=== PATIENT | female | born 1960 | race American Indian/Alaskan Native ===

== ENCOUNTER 2017-08-28 18:58 | Emergency (ER) | payer MEDICAID ==
[2017-08-28 19:20] VITALS: BP 131/82
[2017-08-28] MEDS ORDERED: Sodium Chloride 0.9% 10 ML Syringe FLUSH PRN (19:36)
[2017-08-28] MEDS ORDERED: Sodium Chloride 0.9% 1,000 ML IV ONE (19:38)
--- NOTE | 2017-08-28 19:46 | EDM.PDOC ---
ED HPI GENERAL MEDICAL PROBLEM - General Chief Complaint: Gastrointestinal Problem Stated Complaint: constipation Time Seen by Provider: 08/28/17 19:36 Source of Information: Reports: Patient History Limitations: Reports: No Limitations - History of Present Illness INITIAL COMMENTS - FREE TEXT/NARRATIVE: Patient presents with complaints of constipation. Was seen at the clinic yesterday for similar issue and was told to walk more. She states her last good bowel movement was 4 days ago. She took miralax last night and this morning with a very small bowel movement today. Complains of left upper quadrant pain and bloating. Medical history is significant for hepatitis c and cirrhosis of the liver, copd, ulcer, and diabetes that is diet controlled with metformin. She denies headache, chest pain, SOB, nausea or vomiting. She takes metformin and checks her blood glucose several times per day. Still smokes 1 PPD. Denies drugs or alcohol. Onset Date: 08/27/17 Duration: Constant Location: Reports: Abdomen Quality: Reports: Ache Severity: Moderate Worsens with: Reports: Movement Associated Symptoms: Reports: No Other Symptoms Middle Abdomen Pain Score (Numeric/FACES): 8 - Related Data Allergies Allergy/AdvReac Type Severity Reaction Status Date / Time codeine Allergy Nausea and Verified 08/28/17 19:16 Vomiting meperidine HCl [From Demerol] Allergy Tachycardia Verified 08/28/17 19:16 tramadol Allergy Nausea and Verified 08/28/17 19:16 Vomiting Home Meds: Home Meds Budesonide/Formoterol [Symbicort 80-4.5 MCG] 2 puff INH BID 04/24/14 [History] Tiotropium [Spiriva HandiHaler] 1 cap INH DAILY 04/24/14 [History] Citalopram Hydrobromide [Celexa] 40 mg PO BEDTIME 07/20/14 [History] Ibuprofen 3 tab PO DAILY PRN 08/02/14 [History] QUEtiapine [SEROquel XR] 200 mg PO BEDTIME 12/17/15 [History] Spironolactone [Aldactone] 50 mg PO DAILY 12/17/15 [History] Sucralfate [Carafate] 1 gm PO QID 12/17/15 [History] Furosemide [Lasix] 40 mg PO DAILY 12/27/15 [History] Past Medical History HEENT History: Reports: None Cardiovascular History: Reports: High Cholesterol Respiratory History: Reports: COPD Other Respiratory History: PULMONARY NODULE, LEFT Gastrointestinal History: Reports: Cirrhosis, GERD, Hepatitis, Other (See Below) Other Gastrointestinal History: HEP C Musculoskeletal History: Reports: None Neurological History: Reports: None Psychiatric History: Reports: Anxiety, Depression, PTSD, Suicide Attempt Other Psychiatric History: DRUG OVERDOSE. IV DRUG USE Endocrine/Metabolic History: Reports: None Hematologic History: Reports: Other (See Below) Other Hematologic History: THROMOCYTOPENIA Immunologic History: Reports: None Oncologic (Cancer) History: Reports: None Dermatologic History: Reports: None - Infectious Disease History Infectious Disease History: Reports: Hepatitis C - Past Surgical History Head Surgeries/Procedures: Reports: None Female Surgical History: Reports: Hysterectomy, Tubal Ligation Social & Family History - Tobacco Use Smoking Status *Q: Current Every Day Smoker Years of Tobacco use: 46 Packs/Tins Daily: 0.1 Used Tobacco, but Quit: No Second Hand Smoke Exposure: No - Alcohol Use Days Per Week of Alcohol Use: 0 Number of Drinks Per Day: 0 Total Drinks Per Week: 0 - Recreational Drug Use Recreational Drug Use: No Drug Use in Last 12 Months: No Recreational Drug Type: Reports: Marijuana/Hashish Recreational Drug Use Frequency: Rarely Recreational Drug Last Use: Many years ago ED ROS GENERAL - Review of Systems Review Of Systems: See Below Constitutional: Reports: No Symptoms HEENT: Reports: No Symptoms Respiratory: Reports: No Symptoms Cardiovascular: Reports: No Symptoms Endocrine: Reports: No Symptoms GI/Abdominal: Reports: Abdominal Pain, Constipation : Reports: No Symptoms Musculoskeletal: Reports: No Symptoms Skin: Reports: No Symptoms Neurological: Reports: No Symptoms Psychiatric: Reports: No Symptoms ED EXAM, GI/ABD - Physical Exam Exam: See Below Exam Limited By: No Limitations General Appearance: Alert, WD/WN, No Apparent Distress Eyes: Bilateral: EOMI Head: Atraumatic, Normocephalic Neck: Normal Inspection, Supple, Non-Tender, Full Range of Motion Respiratory/Chest: No Respiratory Distress, Lungs Clear, Normal Breath Sounds, No Accessory Muscle Use, Chest Non-Tender Cardiovascular: Normal Peripheral Pulses, Regular Rate, Rhythm, No Edema, No Gallop, No JVD, No Murmur, No Rub GI/Abdominal Exam: Normal Bowel Sounds, Distended, Splenomegaly Back Exam: Normal Inspection, Full Range of Motion, NT Extremities: Normal Inspection, Normal Range of Motion, Non-Tender, Normal Capillary Refill, No Pedal Edema Neurological: Alert, Oriented, CN II-XII Intact, Normal Cognition, Normal Gait, Normal Reflexes, No Motor/Sensory Deficits Psychiatric: Normal Affect, Normal Mood Skin Exam: Warm, Dry, Intact, Normal Color, No Rash Lymphatic: No Adenopathy Course - Vital Signs Last Recorded V/S: Last Vital Signs Temp 35.8 C 08/28/17 19:17 Pulse 112 H 08/28/17 19:17 Resp 20 08/28/17 19:17 BP 131/82 08/28/17 19:17 Pulse Ox 96 08/28/17 19:17 - Orders/Labs/Meds Orders: Active Orders 24 hr Category Date Time Status Abdomen Pelvis w Cont [CT] Stat Exams 08/28/17 19:36 Taken Sodium Chloride 0.9% [Saline Flush] Med 08/28/17 19:36 Active 10 ml FLUSH ASDIRECTED PRN Saline Lock Insert [OM.PC] Routine Oth 08/28/17 19:36 Ordered Medication Orders Sodium Chloride (Saline Flush) 10 ml FLUSH ASDIRECTED PRN PRN Reason: Keep Vein Open Labs: Laboratory Tests 08/28/17 Range/Units 19:50 Sodium 140 (136-145) mmol/L Potassium 3.0 L (3.5-5.1) mmol/L Chloride 103 (98-107) mmol/L Carbon Dioxide 29 (21-32) mmol/L BUN 9 (7-18) mg/dL Creatinine 0.8 (0.55-1.02) mg/dL Est Cr Clr Drug Dosing TNP Estimated GFR (MDRD) > 60 Glucose 223 H (74-106) mg/dL Calcium 8.2 L (8.5-10.1) mg/dL Corrected Calcium 9.32 (8.5-10.1) mg/dL Total Bilirubin 1.2 H (0.2-1.0) mg/dL AST 70 H (15-37) U/L ALT 83 H (14-59) U/L Alkaline Phosphatase 167 H (46-116) U/L Total Protein 7.0 (6.4-8.2) g/dL Albumin 2.6 L (3.4-5.0) g/dL Globulin 4.4 Albumin/Globulin Ratio 0.59 Meds: Medications Generic Name Dose Route Start Last Admin Trade Name Kathleen PRN Reason Stop Dose Admin Sodium Chloride 10 ml 08/28/17 19:36 Saline Flush FLUSH ASDIRECTED PRN Keep Vein Open Discontinued Medications Generic Name Dose Route Start Last Admin Trade Name Freq PRN Reason Stop Dose Admin Sodium Chloride 1,000 mls @ 999 mls/hr 08/28/17 19:38 08/28/17 19:55 Normal Saline IV 08/28/17 20:38 999 mls/hr ONETIME ONE Administration Magnesium Citrate 296 ml 08/28/17 22:10 Citrate Of Magnesia PO 08/28/17 22:11 ONETIME ONE Potassium Chloride 60 meq 08/28/17 21:44 08/28/17 21:51 Klor-Con 10 PO 08/28/17 21:45 60 meq ONETIME ONE Administration - Re-Assessments/Exams Free Text/Narrative Re-Assessment/Exam: 08/28/17 22:14 labs show hypokalemia at 3.0, CT shows ascites and moderate stool burden. Departure - Departure Time of Disposition: 22:30 Disposition: Home, Self-Care 01 Condition: Fair Clinical Impression: Constipation, Ascites - Discharge Information Instructions: Constipation, Adult, [id number], Ascites Forms: ED Department Discharge Additional Instructions: Your scan today shows that you do have constipation as well as ascites which is a fluid build up in the abdominal cavity due to cirrhosis of the liver. Ascites is a recurrent condition and at some point you may need to have the fluid drained. It is not to this point yet. When you finish the medication for constipation, you may not have relief tonight or even in the morning. Continue the miralax until you have more regular movements. Drink plenty of water to stay hydrated. At least 64 oz. per day. Follow up with your primary doctor as needed for symptom management. Call the ER with any questions or concerns. - Problem List & Annotations (1) Ascites SNOMED Code(s): 443353143 Code(s): R18.8 - OTHER ASCITES Status: Acute Priority: Medium Current Visit: Yes Qualifiers: Ascites type: other type Qualified Code(s): R18.8 - Other ascites (2) Constipation SNOMED Code(s): 40066687 Code(s): K59.00 - CONSTIPATION, UNSPECIFIED Status: Acute Priority: Low Current Visit: Yes - Problem List Review Problem List Initiated/Reviewed/Updated: Yes - My Orders Last 24 Hours: My Active Orders 08/28/17 19:36 Abdomen Pelvis w Cont [CT] Stat Sodium Chloride 0.9% [Saline Flush] 10 ml FLUSH ASDIRECTED PRN Saline Lock Insert [OM.PC] Routine - Assessment/Plan Last 24 Hours: My Active Orders 08/28/17 19:36 Abdomen Pelvis w Cont [CT] Stat Sodium Chloride 0.9% [Saline Flush] 10 ml FLUSH ASDIRECTED PRN Saline Lock Insert [OM.PC] Routine Assessment:: Ascites Constipation Plan: Your scan today shows that you do have constipation as well as ascites which is a fluid build up in the abdominal cavity due to cirrhosis of the liver. Ascites is a recurrent condition and at some point you may need to have the fluid drained. It is not to this point yet. When you finish the medication for constipation, you may not have relief tonight or even in the morning. Continue the miralax until you have more regular movements. Drink plenty of water to stay hydrated. At least 64 oz. per day. Follow up with your primary doctor as needed for symptom management. Call the ER with any questions or concerns.
[2017-08-28 20:20] LABS: CHLORIDE,CL 103 mmol/L (98-107); SODIUM,NA 140 mmol/L (136-145)
[2017-08-28] MEDS ORDERED: Potassium Chloride 10 MEQ Tab.ER PO ONE (21:44)
[2017-08-28] MEDS ORDERED: Magnesium Citrate Solution 296 ML Bottle PO ONE (22:10)
== END 2017-08-28 22:30 | disposition home or self-care (01) ==
LOC: VM.ED 18:58
DX: K59.00 Constipation, unspecified (principal); R18.8 Other ascites; E78.00 Pure hypercholesterolemia, unspecified; F17.210 Nicotine dependence, cigarettes, uncomplicated; Z88.5 Allergy status to narcotic agent; Z88.8 Allergy status to other drugs, medicaments and biological substances; Z79.899 Other long term (current) drug therapy
CPT/HCPCS: 74177; 80053; 96360; 99284; A9270; J7030

== ENCOUNTER 2017-09-03 12:42 | Inpatient (IN) | payer MEDICAID ==
[2017-09-03] MEDS ORDERED: Albuterol/Ipratropium 3.0-0.5 MG/3 ML Neb Soln NEB ONE (12:48)
[2017-09-03] MEDS ORDERED: Azithromycin 500 MG in Sodium Chloride 0.9% 250 ML IV ONE (13:31)
[2017-09-03] MEDS ORDERED: cefTRIAXone 1 GM Vial IVPUSH ONE (13:31)
[2017-09-03 13:44] LABS: CHLORIDE,CL 97 mmol/L (98-107); SODIUM,NA 134 mmol/L (136-145)
--- NOTE | 2017-09-03 14:23 | EDM.PDOC ---
ED HPI GENERAL MEDICAL PROBLEM - General Chief Complaint: Respiratory Problem Time Seen by Provider: 09/03/17 12:50 Source of Information: Reports: Patient, Family History Limitations: Reports: Altered Mental Status - History of Present Illness INITIAL COMMENTS - FREE TEXT/NARRATIVE: Pt. states that she has been experiencing increased shortness of breath for over the past several weeks. Pt. states that she was in ER and into the clinic twice in the past 4 days. Pt. states that she has had some chills but has not been checking her temp. Ambulance was summoned to ER today, but she refused admission and transport. Pt. has a history of cirrhosis of the liver but has been unable to get to see gastro in [place]. She also has severe COPD and chronic resp. failure. Onset: Gradual Location: Reports: Generalized Improves with: Reports: Rest Worsens with: Reports: Movement Associated Symptoms: Reports: Cough, cough w sputum, Diaphoresis, Fever/Chills, Weakness. Denies: Nausea/Vomiting, Rash - Related Data Allergies Allergy/AdvReac Type Severity Reaction Status Date / Time codeine Allergy Nausea and Verified 09/03/17 14:09 Vomiting meperidine HCl [From Demerol] Allergy Tachycardia Verified 09/03/17 14:09 tramadol Allergy Nausea and Verified 09/03/17 14:09 Vomiting Home Meds: Home Meds Budesonide/Formoterol [Symbicort 80-4.5 MCG] 2 puff INH BID 04/24/14 [History] Tiotropium [Spiriva HandiHaler] 1 cap INH DAILY 04/24/14 [History] Citalopram Hydrobromide [Celexa] 40 mg PO BEDTIME 07/20/14 [History] Ibuprofen 3 tab PO DAILY PRN 08/02/14 [History] QUEtiapine [SEROquel XR] 200 mg PO BEDTIME 12/17/15 [History] Spironolactone [Aldactone] 50 mg PO DAILY 12/17/15 [History] Sucralfate [Carafate] 1 gm PO QID 12/17/15 [History] Furosemide [Lasix] 40 mg PO DAILY 12/27/15 [History] Past Medical History HEENT History: Reports: None Cardiovascular History: Reports: High Cholesterol Respiratory History: Reports: COPD Other Respiratory History: PULMONARY NODULE, LEFT Gastrointestinal History: Reports: Cirrhosis, GERD, Hepatitis, Other (See Below) Other Gastrointestinal History: HEP C Musculoskeletal History: Reports: None Neurological History: Reports: None Psychiatric History: Reports: Anxiety, Depression, PTSD, Suicide Attempt Other Psychiatric History: DRUG OVERDOSE. IV DRUG USE Endocrine/Metabolic History: Reports: None Hematologic History: Reports: Other (See Below) Other Hematologic History: THROMOCYTOPENIA Immunologic History: Reports: None Oncologic (Cancer) History: Reports: None Dermatologic History: Reports: None - Infectious Disease History Infectious Disease History: Reports: Hepatitis C - Past Surgical History Head Surgeries/Procedures: Reports: None Female Surgical History: Reports: Hysterectomy, Tubal Ligation Social & Family History - Tobacco Use Smoking Status *Q: Current Every Day Smoker Years of Tobacco use: 40 Packs/Tins Daily: 0.3 Used Tobacco, but Quit: No Second Hand Smoke Exposure: No - Alcohol Use Days Per Week of Alcohol Use: 0 Number of Drinks Per Day: 0 Total Drinks Per Week: 0 - Recreational Drug Use Recreational Drug Use: No Drug Use in Last 12 Months: No Recreational Drug Type: Reports: Marijuana/Hashish Recreational Drug Use Frequency: Rarely Recreational Drug Last Use: Many years ago ED ROS GENERAL - Review of Systems Review Of Systems: See Below Constitutional: Reports: Fever, Chills, Weakness, Fatigue HEENT: Reports: No Symptoms Respiratory: Reports: Shortness of Breath, Wheezing, Cough, Sputum Cardiovascular: Reports: Dyspnea on Exertion Endocrine: Reports: No Symptoms GI/Abdominal: Reports: Anorexia, Other (increased pedal edema) : Reports: No Symptoms Musculoskeletal: Reports: No Symptoms Skin: Reports: Jaundice, Dryness Neurological: Reports: No Symptoms Psychiatric: Reports: No Symptoms Hematologic/Lymphatic: Reports: No Symptoms Immunologic: Reports: No Symptoms ED EXAM, GENERAL - Physical Exam Exam: See Below Exam Limited By: No Limitations General Appearance: Alert, Lethargic Eye Exam: Bilateral Eye: Normal Fundi, Normal Inspection, PERRL, Other (scleral icterus) Respiratory/Chest: Decreased Breath Sounds, Wheezing, Accessory Muscle Use Cardiovascular: Normal Peripheral Pulses, Regular Rate, Rhythm, No Gallop, No JVD, Tachycardia, Other (+ pedal edema) Peripheral Pulses: 2+: Radial (L), Radial (R) GI/Abdominal: Normal Bowel Sounds, Soft, Non-Tender, Distended, Splenomegaly (Female) Exam: Deferred Rectal (Female) Exam: Deferred Back Exam: Normal Inspection, Full Range of Motion, NT Extremities: Normal Range of Motion, Non-Tender, Pedal Edema Neurological: Alert, Oriented Psychiatric: Normal Affect, Normal Mood ( ) Skin Exam: Warm, Jaundice, Pallor Lymphatic: No Adenopathy EKG INTERPRETATION Rhythm: NSR (sinus tach, no st changes) Course - Vital Signs Last Recorded V/S: Last Vital Signs Temp 37.0 C 09/03/17 12:50 Pulse 123 H 09/03/17 14:06 Resp 20 09/03/17 14:06 BP 116/72 09/03/17 14:06 Pulse Ox 94 L 09/03/17 14:06 - Orders/Labs/Meds Orders: Active Orders 24 hr Category Date Time Status Patient Status [ADT] Routine ADT 09/03/17 14:04 Active EKG Documentation Completion [RC] STAT Care 09/03/17 12:46 Active Oxygen Therapy [RC] PRN Care 09/03/17 12:46 Active RT Aerosol Therapy [RC] ASDIRECTED Care 09/03/17 12:48 Active Chest 1V Frontal [CR] Stat Exams 09/03/17 12:46 Taken AMMONIA [REF] Stat Lab 09/03/17 13:10 Received CULTURE BLOOD [BC] Stat Lab 09/03/17 12:50 Received CULTURE BLOOD [BC] Stat Lab 09/03/17 13:10 Received Azithromycin [Zithromax] 500 mg Med 09/03/17 13:31 Active Sodium Chloride 0.9% [Normal Saline] 250 ml IV ONETIME Sodium Chloride 0.9% [Saline Flush] Med 09/03/17 12:46 Active 10 ml FLUSH ASDIRECTED PRN Blood Culture x2 Reflex Set [OM.PC] Stat Oth 09/03/17 12:47 Ordered Peripheral IV Insertion Adult [OM.PC] Routine Oth 09/03/17 12:47 Ordered Medication Orders Azithromycin 500 mg/ Sodium (Chloride) 250 mls @ 250 mls/hr IV ONETIME ONE Stop: 09/03/17 14:30 Last Admin: 09/03/17 13:42 Dose: 250 mls/hr Sodium Chloride (Saline Flush) 10 ml FLUSH ASDIRECTED PRN PRN Reason: Keep Vein Open Labs: Laboratory Tests 09/03/17 09/03/17 09/03/17 Range/Units 12:50 12:50 12:50 WBC 16.8 H (4.0-10.0) x10^3/uL RBC 4.31 (4.00-5.50) x10^6/uL Hgb 12.4 (12.0-16.0) g/dL Hct 36.9 (33.0-47.0) % MCV 85.6 (78.0-93.0) fL MCH 28.8 (26.0-32.0) pg MCHC 33.6 (32.0-36.0) g/dL RDW Coeff of Lauren 18.0 H (10.0-15.0) % Plt Count 91 L (130-400) x10^3/uL Neut % (Auto) 82.5 H (50.0-80.0) % Lymph % (Auto) 4.8 L (25.0-50.0) % [place] % (Auto) 12.5 H (2.0-11.0) % Eos % (Auto) 0.1 (0.0-4.0) % Baso % (Auto) 0.1 L (0.2-1.2) % PT 13.2 H (9.8-11.8) SEC INR 1.2 L (2.0-3.5) POC ABG pH (7.35-7.45) POC ABG pCO2 (35-45) mmHG POC ABG pO2 (80-105) mmHG POC ABG HCO3 (22-26) mmol/L POC ABG Total CO2 (23-27) mmol/L POC ABG O2 Sat (95-98) % POC ABG Base Excess (-2-3) mmol/L POC FiO2 Sodium 134 L (136-145) mmol/L Potassium 3.3 L (3.5-5.1) mmol/L Chloride 97 L (98-107) mmol/L Carbon Dioxide 29 (21-32) mmol/L BUN 13 (7-18) mg/dL Creatinine 0.9 (0.55-1.02) mg/dL Est Cr Clr Drug Dosing 58.84 mL/min Estimated GFR (MDRD) > 60 Glucose 120 H (74-106) mg/dL Lactic Acid (0.4-2.0) mmol/L Calcium 8.9 (8.5-10.1) mg/dL Corrected Calcium 10.02 (8.5-10.1) mg/dL Total Bilirubin 2.8 H (0.2-1.0) mg/dL AST 62 H (15-37) U/L ALT 69 H (14-59) U/L Alkaline Phosphatase 139 H (46-116) U/L Troponin I 0.021 (<=0.056) ng/mL C-Reactive Protein 14.5 H (<=0.9) mg/dL NT-Pro-B Natriuret Pep 459 H (<=125) pg/mL Total Protein 6.9 (6.4-8.2) g/dL Albumin 2.6 L (3.4-5.0) g/dL Globulin 4.3 Albumin/Globulin Ratio 0.60 09/03/17 09/03/17 Range/Units 12:50 13:10 WBC (4.0-10.0) x10^3/uL RBC (4.00-5.50) x10^6/uL Hgb (12.0-16.0) g/dL Hct (33.0-47.0) % MCV (78.0-93.0) fL MCH (26.0-32.0) pg MCHC (32.0-36.0) g/dL RDW Coeff of Lauren (10.0-15.0) % Plt Count (130-400) x10^3/uL Neut % (Auto) (50.0-80.0) % Lymph % (Auto) (25.0-50.0) % [place] % (Auto) (2.0-11.0) % Eos % (Auto) (0.0-4.0) % Baso % (Auto) (0.2-1.2) % PT (9.8-11.8) SEC INR (2.0-3.5) POC ABG pH 7.424 (7.35-7.45) POC ABG pCO2 43 (35-45) mmHG POC ABG pO2 75 L (80-105) mmHG POC ABG HCO3 28 H (22-26) mmol/L POC ABG Total CO2 29 H (23-27) mmol/L POC ABG O2 Sat 95 (95-98) % POC ABG Base Excess 4 H (-2-3) mmol/L POC FiO2 0.32 Sodium (136-145) mmol/L Potassium (3.5-5.1) mmol/L Chloride (98-107) mmol/L Carbon Dioxide (21-32) mmol/L BUN (7-18) mg/dL Creatinine (0.55-1.02) mg/dL Est Cr Clr Drug Dosing mL/min Estimated GFR (MDRD) Glucose (74-106) mg/dL Lactic Acid 2.9 H* (0.4-2.0) mmol/L Calcium (8.5-10.1) mg/dL Corrected Calcium (8.5-10.1) mg/dL Total Bilirubin (0.2-1.0) mg/dL AST (15-37) U/L ALT (14-59) U/L Alkaline Phosphatase (46-116) U/L Troponin I (<=0.056) ng/mL C-Reactive Protein (<=0.9) mg/dL NT-Pro-B Natriuret Pep (<=125) pg/mL Total Protein (6.4-8.2) g/dL Albumin (3.4-5.0) g/dL Globulin Albumin/Globulin Ratio Meds: Medications Generic Name Dose Route Start Last Admin Trade Name Freq PRN Reason Stop Dose Admin Azithromycin 500 mg/ Sodium 250 mls @ 250 mls/hr 09/03/17 13:31 09/03/17 13: 42 Chloride IV 09/03/17 14:30 250 mls/hr ONETIME ONE Administration Sodium Chloride 10 ml 09/03/17 12:46 Saline Flush FLUSH ASDIRECTED PRN Keep Vein Open Discontinued Medications Generic Name Dose Route Start Last Admin Trade Name Freq PRN Reason Stop Dose Admin Albuterol/Ipratropium 3 ml 09/03/17 12:48 09/03/17 12:45 Duoneb 3.0-0.5 Mg/3 Ml NEB 09/03/17 12:49 3 ml ONETIME ONE Administration Ceftriaxone Sodium 1 gm 09/03/17 13:31 09/03/17 13:38 Rocephin IVPUSH 09/03/17 13:32 1 gm ONETIME ONE Administration - Radiology Interpretation Free Text/Narrative:: 1 view chest shows RML infiltrate and hyperinflation Departure - Departure Time of Disposition: 14:15 Disposition: Admitted As Inpatient 65 Clinical Impression: Pneumonia, Respiratory failure, COPD with exacerbation - Discharge Information Referrals: Sin Moreau MD [Primary Care Provider] - - My Orders Last 24 Hours: My Active Orders 09/03/17 12:46 EKG Documentation Completion [RC] STAT Oxygen Therapy [RC] PRN Chest 1V Frontal [CR] Stat Sodium Chloride 0.9% [Saline Flush] 10 ml FLUSH ASDIRECTED PRN 09/03/17 12:47 Blood Culture x2 Reflex Set [OM.PC] Stat Peripheral IV Insertion Adult [OM.PC] Routine 09/03/17 12:48 RT Aerosol Therapy [RC] ASDIRECTED 09/03/17 12:50 CULTURE BLOOD [BC] Stat 09/03/17 13:10 AMMONIA [REF] Stat CULTURE BLOOD [BC] Stat 09/03/17 13:31 Azithromycin [Zithromax] 500 mg Sodium Chloride 0.9% [Normal Saline] 250 ml IV ONETIME 09/03/17 14:04 Patient Status [ADT] Routine - Assessment/Plan Last 24 Hours: My Active Orders 09/03/17 12:46 EKG Documentation Completion [RC] STAT Oxygen Therapy [RC] PRN Chest 1V Frontal [CR] Stat Sodium Chloride 0.9% [Saline Flush] 10 ml FLUSH ASDIRECTED PRN 09/03/17 12:47 Blood Culture x2 Reflex Set [OM.PC] Stat Peripheral IV Insertion Adult [OM.PC] Routine 09/03/17 12:48 RT Aerosol Therapy [RC] ASDIRECTED 09/03/17 12:50 CULTURE BLOOD [BC] Stat 09/03/17 13:10 AMMONIA [REF] Stat CULTURE BLOOD [BC] Stat 09/03/17 13:31 Azithromycin [Zithromax] 500 mg Sodium Chloride 0.9% [Normal Saline] 250 ml IV ONETIME 09/03/17 14:04 Patient Status [ADT] Routine Assessment:: Sepsis secondary to community acquired pneumonia Respiratory failure Plan: Admit-Acute. Pilo Moreau MD, is pt. primary and attending. Discussed code status. She wishes to be code 1. She was started on rocephin and azithromycin in ER.
[2017-09-03] MEDS ORDERED: Ondansetron 4 MG Tab.DIS PO PRN (15:04)
[2017-09-03] MEDS ORDERED: Take Home: Albuterol 6.7 GM Inhaler, 1 Inhaler Pack INH PRN (15:04)
[2017-09-03] MEDS ORDERED: Hydrocortisone 2.5% Crm 30 GM Tube TOP PRN (15:04)
[2017-09-03] MEDS ORDERED: oxyCODONE 5 MG Tab PO PRN (15:04)
[2017-09-03] MEDS ORDERED: Ondansetron 4 MG/2 ML SDV IV PRN (15:06)
[2017-09-03] MEDS ORDERED: Sodium Chloride 0.9% 10 ML Syringe FLUSH PRN (15:06)
[2017-09-03] MEDS ORDERED: Albuterol/Ipratropium 3.0-0.5 MG/3 ML Neb Soln NEB SCH (15:15)
[2017-09-03] MEDS: Albuterol 0.083% 2.5 MG/3 ML Neb Soln NEB PRN ×2 (15:24→20:12)
[2017-09-03] MEDS: Sucralfate 1 GM Tab PO SCH (17:46)
[2017-09-03] MEDS: Albuterol/Ipratropium 3.0-0.5 MG/3 ML Neb Soln NEB SCH (18:26)
[2017-09-03] MEDS: Formoterol/Mometasone 200-5 MCG 8.8 GM Inhaler IH SCH (19:57)
[2017-09-03] MEDS: QUEtiapine 100 MG Tab PO SCH (19:58)
[2017-09-03] MEDS: HYDROmorphone 1 MG/ML Syringe IVPUSH PRN (19:58)
[2017-09-03] MEDS: Citalopram 20 MG Tab PO SCH (19:58)
[2017-09-03] MEDS: Sodium Chloride 0.9% 10 ML Syringe FLUSH PRN (20:00)
--- NOTE | 2017-09-03 21:24 | PCM.HP ---
H&P History of Present Illness - General Date of Service: 09/03/17 Admit Problem/Dx: Admission Diagnosis/Problem Admission Diagnosis/Problem Community acquired pneumonia Source of Information: Patient, Family - History of Present Illness Initial Comments - Free Text/Narative: Chief complaint: Cough, dyspnea. History of present illness: Patient presented to ER earlier today with cough dyspnea fever. About one days duration. I had actually just seen patient in the clinic the day prior for follow-up chronic cirrhosis with ascites encephalopathy apparent portal hypertension and varices. Flu test was negative showed a white count of 16,000 requiring supplemental oxygen. Mild fever in the ER. Past medical history: end-stage liver disease. Cirrhosis secondary to hep C past alcohol use. Past IV drug use of an apparent remission. Past alcoholism and apparent remission. COPD. Depression and anxiety. Smoker. Medications: Aldactone, oxycodone, metformin, sucralfate, lactulose, when necessary Zofran, Lasix, Celexa, when necessary albuterol, Symbicort, Spiriva, DuoNeb, quetiapine, Protonix. Allergies: Codeine, Demerol, tramadol. Social history: Smoker, history of drug use less so recently. History of alcohol, less so recently. Family history: Noncontributory. Review of systems: Fever, denies chills or myalgias. Cough and dyspnea. HPI. No chest pain. Chronic abdominal pain chronic abdominal distention chronic peripheral edema. Physical exam: Blood pressure 96/60, pulse 110, temperature 37.3, oxygen saturation 90% on 2 L. Arousable, resting, no acute distress. Heart tachycardia and regular. Lung sounds somewhat distant, some scattered wheeze and rhonchi. Abdomen soft and distended and nontender. 1+ peripheral edema bilaterally, pitting. Extremities warm well perfused. Assessment and plan: #1. Cough fever dyspnea, appears to be community-acquired pneumonia with exacerbation of COPD. On Rocephin plus Zithromax. Flu testing negative. DuoNeb and prednisone. Continue home inhalers. #2. Diabetes mellitus, and relatively newly diagnosed. Sugar not too bad currently. Will monitor. Hold metformin until lactate normalizes. #3. End-stage liver disease appears stable. Continue Aldactone and Lasix for ascites and edema. Continue lactulose for hepatic encephalopathy. She will have follow-up with GI outpatient repeat endoscopy for peptic ulcer disease rule out along with observation of apparent varus sees by CT. No sign of active bleeding currently. Renal function appears stable. #4. We will do low-dose Lovenox DVT prophylaxis at 30 mg given hepatic dysfunction, low lean body mass and thrombocytopenia. Abdomen Pain Score (Numeric/FACES): 5 - Related Data Allergies/Adverse Reactions: Allergies Allergy/AdvReac Type Severity Reaction Status Date / Time codeine AdvReac Nausea and Verified 09/03/17 14:25 Vomiting meperidine HCl [From Demerol] AdvReac Tachycardia Verified 09/03/17 14:25 tramadol AdvReac Nausea and Verified 09/03/17 14:25 Vomiting Home Medications: Home Meds Tiotropium [Spiriva HandiHaler] 1 cap INH DAILY 04/24/14 [History] QUEtiapine [SEROquel XR] 200 mg PO BEDTIME 12/17/15 [History] Sucralfate [Carafate] 1 gm PO TID 12/17/15 [History] Albuterol [Proair HFA] 2 puff INH Q4HR PRN 09/03/17 [History] Albuterol/Ipratropium [DuoNeb 3.0-0.5 MG/3 ML] 3 ml NEB Q6H 09/03/17 [History] Budesonide/Formoterol Fumarate [Symbicort 160-4.5 Mcg Inhaler] 2 puff IH BID [History] Citalopram Hydrobromide [Celexa] 20 mg PO BEDTIME 09/03/17 [History] Furosemide 40 mg PO DAILY 09/03/17 [History] Hydrocortisone [Hydrocortisone 2.5% Crm] 1 gm TOP BID PRN 09/03/17 [History] Ondansetron 4 mg PO Q6H PRN 09/03/17 [History] Pantoprazole [Pantoprazole Sodium] 40 mg PO DAILY 09/03/17 [History] Spironolactone [Aldactone] 100 mg PO DAILY 09/03/17 [History] metFORMIN HCl [Metformin HCl ER] 750 mg PO DAILY 09/03/17 [History] oxyCODONE 5 mg PO BID PRN 09/03/17 [History] Past Medical History HEENT History: Reports: None Cardiovascular History: Reports: High Cholesterol Respiratory History: Reports: COPD Other Respiratory History: PULMONARY NODULE, LEFT Gastrointestinal History: Reports: Cirrhosis, GERD, Hepatitis, Other (See Below) Other Gastrointestinal History: HEP C Musculoskeletal History: Reports: None Neurological History: Reports: None Psychiatric History: Reports: Anxiety, Depression, PTSD, Suicide Attempt Other Psychiatric History: DRUG OVERDOSE. IV DRUG USE Endocrine/Metabolic History: Reports: None Hematologic History: Reports: Other (See Below) Other Hematologic History: THROMOCYTOPENIA Immunologic History: Reports: None Other Immunologic History: Hepatitis C Oncologic (Cancer) History: Reports: None Dermatologic History: Reports: None - Infectious Disease History Infectious Disease History: Reports: Hepatitis C - Past Surgical History Head Surgeries/Procedures: Reports: None Female Surgical History: Reports: Hysterectomy, Tubal Ligation Social & Family History - Family History Family Medical History: Noncontributory - Tobacco Use Smoking Status *Q: Current Every Day Smoker Years of Tobacco use: 40 Packs/Tins Daily: 0.3 Used Tobacco, but Quit: No Second Hand Smoke Exposure: No - Caffeine Use Caffeine Use: Reports: Coffee - Alcohol Use Days Per Week of Alcohol Use: 0 Number of Drinks Per Day: 0 Total Drinks Per Week: 0 - Recreational Drug Use Recreational Drug Use: No Drug Use in Last 12 Months: No Recreational Drug Type: Reports: Marijuana/Hashish Recreational Drug Use Frequency: Rarely Recreational Drug Last Use: Many years ago H&P Review of Systems - Review of Systems: Review Of Systems: See Below Exam - Exam Exam: See Below - Vital Signs Vital Signs: Last Vital Signs Temp 37.3 C 09/03/17 18:00 Pulse 117 H 09/03/17 18:00 Resp 20 09/03/17 14:18 BP 96/51 L 09/03/17 18:00 Pulse Ox 94 L 09/03/17 20:00 Weight: 62.142 kg - Patient Data Lab Results Last 24 hrs: Laboratory Results - last 24 hr 09/03/17 09/03/17 Range/Units 17:05 20:09 POC Glucose 127 H 174 H (74-106) mg/dL Result Diagrams: 09/03/17 12:50 09/03/17 12:50 *Q Meaningful Use (ADM) - VTE *Q VTE Criteria *Q: - Stroke *Q Stroke Criteria *Q: - AMI *Q AMI Criteria *Q: Problem List Initiated/Reviewed/Updated: Yes Orders Last 24hrs: Active Orders 24 hr Category Date Time Status Patient Status [ADT] Routine ADT 09/03/17 15:07 Active Blood Glucose Check, Bedside [] 07,11,17,20 Care 09/03/17 15:06 Active Oxygen Therapy [RC] 08,20 Care 09/03/17 15:07 Active RT Aerosol Therapy [RC] 07,07,13,19 Care 09/03/17 15:08 Active Up With Assistance [RC] ASDIRECTED Care 09/03/17 15:06 Active VTE/DVT Education [RC] .PRN Care 09/03/17 15:07 Active Vital Signs [RC] 06,10,14,18,22,02 Care 09/03/17 15:07 Active Regular Diet [DIET] Diet 09/03/17 Dinner Active C-REACTIVE PROTEIN [CHEM] AM Lab 09/04/17 05:11 Ordered CBC WITH AUTO DIFF [HEME] AM Lab 09/04/17 05:11 Ordered COMPREHENSIVE METABOLIC PN,CMP [CHEM] AM Lab 09/04/17 05:11 Ordered LACTIC ACID [CHEM] AM Lab 09/04/17 05:11 Ordered MAGNESIUM [CHEM] AM Lab 09/04/17 05:11 Ordered PHOSPHORUS [CHEM] AM Lab 09/04/17 05:11 Ordered Albuterol [Proventil Neb Soln] Med 09/03/17 15:08 Active 2.5 mg NEB Q4HRRT PRN Albuterol/Ipratropium [DuoNeb 3.0-0.5 MG/3 ML] Med 09/03/17 19:00 Active 3 ml NEB Q6H Citalopram [Celexa] Med 09/03/17 20:00 Active 20 mg PO BEDTIME Enoxaparin [Lovenox] Med 09/04/17 20:00 Active 30 mg SUBCUT BEDTIME Furosemide [Lasix] Med 09/04/17 08:00 Active 40 mg PO DAILY HYDROmorphone [Dilaudid] Med 09/03/17 15:06 Active 0.25 mg IVPUSH Q2H PRN Hydrocortisone [Hydrocortisone 2.5% Crm] Med 09/03/17 15:04 Active 0 gm TOP BID PRN Mometasone/Formoterol [Dulera 200-5 MCG] Med 09/03/17 20:00 Active 2 puff IH BID Ondansetron [Zofran ODT] Med 09/03/17 15:04 Active 4 mg PO Q6H PRN Ondansetron [Zofran] Med 09/03/17 15:06 Active 4 mg IV Q6H PRN Pantoprazole [ProTONIX] Med 09/04/17 07:00 Active 40 mg PO DAILY@0700 QUEtiapine [SEROquel] Med 09/03/17 20:00 Active 100 mg PO BID Sodium Chloride 0.9% [Saline Flush] Med 09/03/17 15:06 Active 10 ml FLUSH ASDIRECTED PRN Spironolactone [Aldactone] Med 09/04/17 08:00 Active 100 mg PO DAILY Sucralfate [Carafate] Med 09/03/17 17:00 Active 1 gm PO TIDAC Tiotropium [Spiriva HandiHaler] Med 09/04/17 20:00 Active 18 mcg INH BEDTIME oxyCODONE Med 09/03/17 15:04 Active 5 mg PO BID PRN Saline Lock Insert [OM.PC] Routine Oth 09/03/17 15:06 Ordered Code Status [Resuscitation Status] Routine Resus Stat 09/03/17 14:55 Ordered Medication Orders Albuterol (Proventil Neb Soln) 2.5 mg NEB Q4HRRT PRN PRN Reason: Dyspnea Last Admin: 09/03/17 20:12 Dose: 2.5 mg Admin: 09/03/17 15:24 Dose: 2.5 mg Albuterol/Ipratropium (Duoneb 3.0-0.5 Mg/3 Ml) 3 ml NEB Q6H [facility] Last Admin: 09/03/17 18:26 Dose: 3 ml Citalopram Hydrobromide (Celexa) 20 mg PO BEDTIME [facility] Last Admin: 09/03/17 19:58 Dose: 20 mg Enoxaparin Sodium (Lovenox) 30 mg SUBCUT BEDTIME [facility] Furosemide (Lasix) 40 mg PO DAILY [facility] Hydrocortisone (Hydrocortisone 2.5% Crm) 0 gm TOP BID PRN PRN Reason: Itching Hydromorphone HCl (Dilaudid) 0.25 mg IVPUSH Q2H PRN PRN Reason: Pain (severe 7-10) Last Admin: 09/03/17 19:58 Dose: 0.25 mg Mometasone Furoate/Formoterol Fumar (Dulera 200-5 Mcg) 2 puff IH BID [facility] Last Admin: 09/03/17 19:57 Dose: 2 puff Ondansetron HCl (Zofran Odt) 4 mg PO Q6H PRN PRN Reason: Nausea Ondansetron HCl (Zofran) 4 mg IV Q6H PRN PRN Reason: Nausea/Vomiting Oxycodone HCl (Oxycodone) 5 mg PO BID PRN PRN Reason: pain Last Admin: 09/03/17 15:42 Dose: 5 mg Pantoprazole Sodium (Protonix) 40 mg PO DAILY@0700 [facility] Quetiapine Fumarate (Seroquel) 100 mg PO BID [facility] Last Admin: 09/03/17 19:58 Dose: 100 mg Sodium Chloride (Saline Flush) 10 ml FLUSH ASDIRECTED PRN PRN Reason: Keep Vein Open Last Admin: 09/03/17 20:00 Dose: 10 ml Sodium Chloride (Saline Flush) 10 ml FLUSH ASDIRECTED PRN PRN Reason: Keep Vein Open Spironolactone (Aldactone) 100 mg PO DAILY [facility] Sucralfate (Carafate) 1 gm PO TIDAC [facility] Last Admin: 09/03/17 17:46 Dose: 1 gm Tiotropium [place] (Spiriva Handihaler) 18 mcg INH BEDTIME [facility]
[2017-09-04] MEDS: Albuterol/Ipratropium 3.0-0.5 MG/3 ML Neb Soln NEB SCH ×5 (00:31→18:00)
[2017-09-04] MEDS: Pantoprazole 40 MG Tab.CR PO SCH (06:24)
[2017-09-04] MEDS: Sucralfate 1 GM Tab PO SCH ×3 (06:24→16:35)
[2017-09-04] MEDS: HYDROmorphone 1 MG/ML Syringe IVPUSH PRN (06:25)
[2017-09-04] MEDS: Albuterol 0.083% 2.5 MG/3 ML Neb Soln NEB PRN ×4 (06:25→10:55)
[2017-09-04] MEDS: Sodium Chloride 0.9% 10 ML Syringe FLUSH PRN ×3 (06:26→10:49)
[2017-09-04 07:44] LABS: CHLORIDE,CL 97 mmol/L (98-107); SODIUM,NA 135 mmol/L (136-145)
[2017-09-04] MEDS: QUEtiapine 100 MG Tab PO SCH ×2 (08:11→21:02)
[2017-09-04] MEDS: Spironolactone 25 MG Tab PO SCH (08:11)
[2017-09-04] MEDS: Furosemide 40 MG Tab PO SCH (08:11)
[2017-09-04] MEDS: Formoterol/Mometasone 200-5 MCG 8.8 GM Inhaler IH SCH ×2 (08:14→21:01)
[2017-09-04] MEDS ORDERED: Lactated Ringers 1,000 ML IV ONE ×2 (08:26→16:30)
[2017-09-04] MEDS ORDERED: Magnesium Sulfate/Water 2 GM in Premix Bag 1 BAG IV ONE (08:28)
[2017-09-04] MEDS ORDERED: methylPREDNISolone Sodium Succinate 125 MG/2 ML SDV IVPUSH ONE (09:01)
[2017-09-04] MEDS: Lactated Ringers 1,000 ML IV SCH ×2 (09:24→17:59)
[2017-09-04] MEDS ORDERED: Albuterol 0.083% 2.5 MG/3 ML Neb Soln NEB PRN (11:44)
[2017-09-04] MEDS ORDERED: methylPREDNISolone Sod Succ 60 MG in Sodium Chloride 0.9% 100 ML IV SCH (16:30)
--- NOTE | 2017-09-04 16:37 | PCM.PN ---
- General Info Date of Service: 09/04/17 Admission Dx/Problem (Free Text): Subjective: Patient was admitted yesterday for cough fever dyspnea. Mild middle lobe infiltrate by x-ray. Started on Rocephin plus Zithromax for community-acquired pneumonia along with steroid and DuoNeb for exacerbation of COPD. Did fairly well overnight on a couple liters of oxygen. This morning developed more labored breathing. Was given nebulizer without much improvement. RT consult it. Placed on BiPAP. Mild improvement during the day. Saturating well on 45% oxygen on this. When she's not on BiPAP she is requiring about 5 L by nasal cannula. Hasn't eaten a whole lot today hasn't pedal a lot today. She denies any focal pain. Objective: Pulse 120 blood pressure 100/60. Temperature 37.3. Oxygen saturation 97% on BiPAP 45%. Settings 15 and five of water. Easily arousable. Lungs reveal diminished sounds bilaterally with diffuse rhonchi and tightness. Heart tachycardia and regular. Abdomen chronically mild distention nontender. Extremities warm well perfused 1+ pitting edema, chronic. Assessment and plan: Pneumonia with exacerbation of COPD. Moderate respiratory failure currently. On her ABG today she had 76 mm of O2 on 45% inspired oxygen giving her a ratio less than 200. RT does feel she is improving slightly throughout the day. We will continue frequent nebulizer every 2 hours, Solu-Medrol 60 mg IV 3 times a day, Rocephin plus Zithromax. She does desire to be a code one currently. If she is not maintaining between nasal cannula and periods of BiPAP will need to discuss transfer to higher level of care. Her chronic decompensated liver disease/cirrhosis appears stable. She has mild encephalopathy which may complicate her mental status and respiratory issues some. Her renal function is remaining stable. Has new diabetes with sugars okay currently. Monitor 4 times a day. Metformin held while acutely ill given mild elevated patient lactate. Hasn't had much urine output today. We will bolus with a liter of normal, not convinced of any CHF by x-ray. Done run maintenance at 100. Recheck chemistry in a.m. - Patient Data Vitals - Most Recent: Last Vital Signs Temp 37.2 C 09/04/17 13:59 Pulse 111 H 09/04/17 15:15 Resp 22 H 09/04/17 15:15 BP 114/72 09/04/17 15:15 Pulse Ox 95 09/04/17 15:15 Weight - Most Recent: 62.142 kg I&O - Last 24 Hours: Intake & Output 09/04/17 09/04/17 09/04/17 06:59 14:59 22:59 Intake Total 1800 250 Output Total 550 Balance 1250 250 Lab Results Last 24 Hours: Laboratory Results - last 24 hr 09/03/17 09/03/17 09/04/17 Range/Units 17:05 20:09 06:06 WBC (4.0-10.0) x10^3/uL RBC (4.00-5.50) x10^6/uL Hgb (12.0-16.0) g/dL Hct (33.0-47.0) % MCV (78.0-93.0) fL MCH (26.0-32.0) pg MCHC (32.0-36.0) g/dL RDW Coeff of Lauren (10.0-15.0) % Plt Count (130-400) x10^3/uL Add Manual Diff Neutrophils % (Manual) (50-80) % Band Neutrophils % (0-6) % Lymphocytes % (Manual) (25-50) % Monocytes % (Manual) (2-11) % Platelet Estimate D-Dimer, Quantitative (<=0.58) mg/LFEU POC ABG pH (7.35-7.45) POC ABG pCO2 (35-45) mmHG POC ABG pO2 (80-105) mmHG POC ABG HCO3 (22-26) mmol/L POC ABG Total CO2 (23-27) mmol/L POC ABG O2 Sat (95-98) % POC ABG Base Excess (-2-3) mmol/L O2 Delivery Device Sodium (136-145) mmol/L Potassium (3.5-5.1) mmol/L Chloride (98-107) mmol/L Carbon Dioxide (21-32) mmol/L BUN (7-18) mg/dL Creatinine (0.55-1.02) mg/dL Est Cr Clr Drug Dosing mL/min Estimated GFR (MDRD) Glucose (74-106) mg/dL POC Glucose 127 H 174 H 156 H (74-106) mg/dL Lactic Acid (0.4-2.0) mmol/L Calcium (8.5-10.1) mg/dL Corrected Calcium (8.5-10.1) mg/dL Phosphorus (2.6-4.7) mg/dL Magnesium (1.8-2.4) mg/dL Total Bilirubin (0.2-1.0) mg/dL AST (15-37) U/L ALT (14-59) U/L Alkaline Phosphatase (46-116) U/L Troponin I (<=0.056) ng/mL C-Reactive Protein (<=0.9) mg/dL NT-Pro-B Natriuret Pep (<=125) pg/mL Total Protein (6.4-8.2) g/dL Albumin (3.4-5.0) g/dL Globulin Albumin/Globulin Ratio 09/04/17 09/04/17 09/04/17 Range/Units 06:45 06:45 06:45 WBC 10.2 H (4.0-10.0) x10^3/uL RBC 4.12 (4.00-5.50) x10^6/uL Hgb 12.0 (12.0-16.0) g/dL Hct 36.1 (33.0-47.0) % MCV 87.6 (78.0-93.0) fL MCH 29.1 (26.0-32.0) pg MCHC 33.2 (32.0-36.0) g/dL RDW Coeff of Lauren 17.9 H (10.0-15.0) % Plt Count 116 L (130-400) x10^3/uL Add Manual Diff Yes Neutrophils % (Manual) 82 H (50-80) % Band Neutrophils % 6 (0-6) % Lymphocytes % (Manual) 10 L (25-50) % Monocytes % (Manual) 2 (2-11) % Platelet Estimate Adequate D-Dimer, Quantitative (<=0.58) mg/LFEU POC ABG pH (7.35-7.45) POC ABG pCO2 (35-45) mmHG POC ABG pO2 (80-105) mmHG POC ABG HCO3 (22-26) mmol/L POC ABG Total CO2 (23-27) mmol/L POC ABG O2 Sat (95-98) % POC ABG Base Excess (-2-3) mmol/L O2 Delivery Device Sodium 135 L (136-145) mmol/L Potassium 3.7 (3.5-5.1) mmol/L Chloride 97 L (98-107) mmol/L Carbon Dioxide 30 (21-32) mmol/L BUN 18 (7-18) mg/dL Creatinine 0.9 (0.55-1.02) mg/dL Est Cr Clr Drug Dosing 58.84 mL/min Estimated GFR (MDRD) > 60 Glucose 155 H (74-106) mg/dL POC Glucose (74-106) mg/dL Lactic Acid 2.8 H* (0.4-2.0) mmol/L Calcium 9.1 (8.5-10.1) mg/dL Corrected Calcium 10.22 H (8.5-10.1) mg/dL Phosphorus 3.5 (2.6-4.7) mg/dL Magnesium 1.7 L (1.8-2.4) mg/dL Total Bilirubin 1.7 H (0.2-1.0) mg/dL AST 104 H (15-37) U/L ALT 85 H (14-59) U/L Alkaline Phosphatase 134 H (46-116) U/L Troponin I (<=0.056) ng/mL C-Reactive Protein 19.7 H (<=0.9) mg/dL NT-Pro-B Natriuret Pep (<=125) pg/mL Total Protein 7.1 (6.4-8.2) g/dL Albumin 2.6 L (3.4-5.0) g/dL Globulin 4.5 Albumin/Globulin Ratio 0.58 09/04/17 09/04/17 09/04/17 Range/Units 09:05 09:05 10:59 WBC (4.0-10.0) x10^3/uL RBC (4.00-5.50) x10^6/uL Hgb (12.0-16.0) g/dL Hct (33.0-47.0) % MCV (78.0-93.0) fL MCH (26.0-32.0) pg MCHC (32.0-36.0) g/dL RDW Coeff of Lauren (10.0-15.0) % Plt Count (130-400) x10^3/uL Add Manual Diff Neutrophils % (Manual) (50-80) % Band Neutrophils % (0-6) % Lymphocytes % (Manual) (25-50) % Monocytes % (Manual) (2-11) % Platelet Estimate D-Dimer, Quantitative 2.74 H (<=0.58) mg/LFEU POC ABG pH (7.35-7.45) POC ABG pCO2 (35-45) mmHG POC ABG pO2 (80-105) mmHG POC ABG HCO3 (22-26) mmol/L POC ABG Total CO2 (23-27) mmol/L POC ABG O2 Sat (95-98) % POC ABG Base Excess (-2-3) mmol/L O2 Delivery Device Sodium (136-145) mmol/L Potassium (3.5-5.1) mmol/L Chloride (98-107) mmol/L Carbon Dioxide (21-32) mmol/L BUN (7-18) mg/dL Creatinine (0.55-1.02) mg/dL Est Cr Clr Drug Dosing mL/min Estimated GFR (MDRD) Glucose (74-106) mg/dL POC Glucose 150 H (74-106) mg/dL Lactic Acid (0.4-2.0) mmol/L Calcium (8.5-10.1) mg/dL Corrected Calcium (8.5-10.1) mg/dL Phosphorus (2.6-4.7) mg/dL Magnesium (1.8-2.4) mg/dL Total Bilirubin (0.2-1.0) mg/dL AST (15-37) U/L ALT (14-59) U/L Alkaline Phosphatase (46-116) U/L Troponin I < 0.017 (<=0.056) ng/mL C-Reactive Protein (<=0.9) mg/dL NT-Pro-B Natriuret Pep 589 H (<=125) pg/mL Total Protein (6.4-8.2) g/dL Albumin (3.4-5.0) g/dL Globulin Albumin/Globulin Ratio 09/04/17 Range/Units 12:08 WBC (4.0-10.0) x10^3/uL RBC (4.00-5.50) x10^6/uL Hgb (12.0-16.0) g/dL Hct (33.0-47.0) % MCV (78.0-93.0) fL MCH (26.0-32.0) pg MCHC (32.0-36.0) g/dL RDW Coeff of Lauren (10.0-15.0) % Plt Count (130-400) x10^3/uL Add Manual Diff Neutrophils % (Manual) (50-80) % Band Neutrophils % (0-6) % Lymphocytes % (Manual) (25-50) % Monocytes % (Manual) (2-11) % Platelet Estimate D-Dimer, Quantitative (<=0.58) mg/LFEU POC ABG pH 7.401 (7.35-7.45) POC ABG pCO2 51 H (35-45) mmHG POC ABG pO2 78 L (80-105) mmHG POC ABG HCO3 31 H (22-26) mmol/L POC ABG Total CO2 33 H (23-27) mmol/L POC ABG O2 Sat 95 (95-98) % POC ABG Base Excess 7 H (-2-3) mmol/L O2 Delivery Device Sodium (136-145) mmol/L Potassium (3.5-5.1) mmol/L Chloride (98-107) mmol/L Carbon Dioxide (21-32) mmol/L BUN (7-18) mg/dL Creatinine (0.55-1.02) mg/dL Est Cr Clr Drug Dosing mL/min Estimated GFR (MDRD) Glucose (74-106) mg/dL POC Glucose (74-106) mg/dL Lactic Acid (0.4-2.0) mmol/L Calcium (8.5-10.1) mg/dL Corrected Calcium (8.5-10.1) mg/dL Phosphorus (2.6-4.7) mg/dL Magnesium (1.8-2.4) mg/dL Total Bilirubin (0.2-1.0) mg/dL AST (15-37) U/L ALT (14-59) U/L Alkaline Phosphatase (46-116) U/L Troponin I (<=0.056) ng/mL C-Reactive Protein (<=0.9) mg/dL NT-Pro-B Natriuret Pep (<=125) pg/mL Total Protein (6.4-8.2) g/dL Albumin (3.4-5.0) g/dL Globulin Albumin/Globulin Ratio Med Orders - Current: Current Medications Albuterol (Proventil Neb Soln) 2.5 mg NEB Q2H PRN PRN Reason: Dyspnea Albuterol/Ipratropium (Duoneb 3.0-0.5 Mg/3 Ml) 3 ml NEB Q6H [facility] Last Admin: 09/04/17 12:55 Dose: 3 ml Citalopram Hydrobromide (Celexa) 20 mg PO BEDTIME [facility] Last Admin: 09/03/17 19:58 Dose: 20 mg Enoxaparin Sodium (Lovenox) 40 mg SUBCUT BEDTIME [facility] Furosemide (Lasix) 40 mg PO DAILY [facility] Last Admin: 09/04/17 08:11 Dose: 40 mg Hydrocortisone (Hydrocortisone 2.5% Crm) 0 gm TOP BID PRN PRN Reason: Itching Hydromorphone HCl (Dilaudid) 0.25 mg IVPUSH Q2H PRN PRN Reason: Pain (severe 7-10) Last Admin: 09/04/17 06:25 Dose: 0.25 mg Lactated Ringer's (Ringers, Lactated) 1,000 mls @ 100 mls/hr IV ASDIRECTED [facility] Last Admin: 09/04/17 09:24 Dose: 100 mls/hr Lactated Ringer's (Ringers, Lactated) 1,000 mls @ 999 mls/hr IV .BOLUS ONE Stop: 09/04/17 17:30 Methylprednisolone Sodium Succinate 60 mg/ Sodium Chloride 100.48 mls @ 200 mls /hr IV Q8H [facility] Mometasone Furoate/Formoterol Fumar (Dulera 200-5 Mcg) 2 puff IH BID [facility] Last Admin: 09/04/17 08:14 Dose: 2 puff Ondansetron HCl (Zofran Odt) 4 mg PO Q6H PRN PRN Reason: Nausea Ondansetron HCl (Zofran) 4 mg IV Q6H PRN PRN Reason: Nausea/Vomiting Oxycodone HCl (Oxycodone) 5 mg PO BID PRN PRN Reason: pain Last Admin: 09/03/17 15:42 Dose: 5 mg Pantoprazole Sodium (Protonix) 40 mg PO DAILY@0700 [facility] Last Admin: 09/04/17 06:24 Dose: 40 mg Quetiapine Fumarate (Seroquel) 100 mg PO BID [facility] Last Admin: 09/04/17 08:11 Dose: 100 mg Sodium Chloride (Saline Flush) 10 ml FLUSH ASDIRECTED PRN PRN Reason: Keep Vein Open Last Admin: 09/04/17 10:49 Dose: 10 ml Sodium Chloride (Saline Flush) 10 ml FLUSH ASDIRECTED PRN PRN Reason: Keep Vein Open Spironolactone (Aldactone) 100 mg PO DAILY [facility] Last Admin: 09/04/17 08:11 Dose: 100 mg Sucralfate (Carafate) 1 gm PO TIDAC [facility] Last Admin: 09/04/17 10:51 Dose: Not Given Tiotropium [place] (Spiriva Handihaler) 18 mcg INH BEDTIME [facility] Discontinued Medications Albuterol (Proventil Neb Soln) 2.5 mg NEB Q4HRRT PRN PRN Reason: Dyspnea Last Admin: 09/04/17 10:55 Dose: 2.5 mg Albuterol/Ipratropium (Duoneb 3.0-0.5 Mg/3 Ml) 3 ml NEB ONETIME ONE Stop: 09/03/17 12:49 Last Admin: 09/03/17 12:45 Dose: 3 ml Albuterol/Ipratropium (Duoneb 3.0-0.5 Mg/3 Ml) 3 ml NEB Q6H [facility] Ceftriaxone Sodium (Rocephin) 1 gm IVPUSH ONETIME ONE Stop: 09/03/17 13:32 Last Admin: 09/03/17 13:38 Dose: 1 gm Enoxaparin Sodium (Lovenox) 30 mg SUBCUT BEDTIME [facility] Azithromycin 500 mg/ Sodium (Chloride) 250 mls @ 250 mls/hr IV ONETIME ONE Stop: 09/03/17 14:30 Last Admin: 09/03/17 13:42 Dose: 250 mls/hr Lactated Ringer's (Ringers, Lactated) 1,000 mls @ 999 mls/hr IV .BOLUS ONE Stop: 09/04/17 09:26 Last Admin: 09/04/17 09:23 Dose: Not Given Magnesium Sulfate 2 gm/ Premix 50 mls @ 25 mls/hr IV ONETIME ONE Stop: 09/04/17 10:27 Last Admin: 09/04/17 09:00 Dose: 25 mls/hr Methylprednisolone Sodium Succinate (Solu-Medrol) 125 mg IVPUSH ONETIME ONE Stop: 09/04/17 09:02 Last Admin: 09/04/17 09:17 Dose: 125 mg - Problem List Review Problem List Initiated/Reviewed/Updated: Yes - My Orders Last 24 Hours: My Active Orders 09/03/17 17:00 Sucralfate [Carafate] 1 gm PO TIDAC 09/03/17 19:00 Albuterol/Ipratropium [DuoNeb 3.0-0.5 MG/3 ML] 3 ml NEB Q6H 09/03/17 20:00 Citalopram [Celexa] 20 mg PO BEDTIME Mometasone/Formoterol [Dulera 200-5 MCG] 2 puff IH BID QUEtiapine [SEROquel] 100 mg PO BID 09/03/17 Dinner Regular Diet [DIET] 09/04/17 03:16 RT Aerosol Therapy [RC] ASDIRECTED 09/04/17 07:00 Pantoprazole [ProTONIX] 40 mg PO DAILY@0700 09/04/17 08:00 Furosemide [Lasix] 40 mg PO DAILY Spironolactone [Aldactone] 100 mg PO DAILY 09/04/17 08:34 Chest 1V Frontal [CR] Stat 09/04/17 09:15 RT BiPAP/CPAP [RC] 07,11,15,19,23,03 09/04/17 09:30 Lactated Ringers [Ringers, Lactated] 1,000 ml IV ASDIRECTED 09/04/17 11:44 Albuterol [Proventil Neb Soln] 2.5 mg NEB Q2H PRN 09/04/17 16:30 Lactated Ringers [Ringers, Lactated] 1,000 ml IV .BOLUS methylPREDNISolone Sod Succ [Solu-MEDROL] 60 mg Sodium Chloride 0.9% [Normal Saline] 100 ml IV Q8H 09/04/17 20:00 Enoxaparin [Lovenox] 40 mg SUBCUT BEDTIME Tiotropium [Spiriva HandiHaler] 18 mcg INH BEDTIME
[2017-09-04] MEDS: methylPREDNISolone Sodium Succinate 125 MG/2 ML SDV IVPUSH SCH (16:48)
[2017-09-04] MEDS ORDERED: Enoxaparin 30 MG/0.3 ML Syringe SUBCUT SCH (20:00)
[2017-09-04] MEDS ORDERED: Enoxaparin 40 MG/0.4 ML Syringe SUBCUT SCH (20:00)
[2017-09-04] MEDS: Tiotropium Inhaler 18 MCG Inhalation Powder Cap Kit of 5 INH SCH (21:02)
[2017-09-04] MEDS: Citalopram 20 MG Tab PO SCH (21:02)
[2017-09-05] MEDS: Albuterol/Ipratropium 3.0-0.5 MG/3 ML Neb Soln NEB SCH ×5 (01:31→18:30)
[2017-09-05] MEDS: methylPREDNISolone Sodium Succinate 125 MG/2 ML SDV IVPUSH SCH ×3 (01:31→17:39)
[2017-09-05] MEDS: Lactated Ringers 1,000 ML IV SCH (02:34)
[2017-09-05] MEDS: Sucralfate 1 GM Tab PO SCH ×3 (06:43→17:37)
[2017-09-05] MEDS: Pantoprazole 40 MG Tab.CR PO SCH (06:43)
[2017-09-05 07:18] LABS: CHLORIDE,CL 101 mmol/L (98-107); SODIUM,NA 137 mmol/L (136-145)
[2017-09-05] MEDS: Furosemide 40 MG Tab PO SCH (07:57)
[2017-09-05] MEDS: Spironolactone 25 MG Tab PO SCH (07:57)
[2017-09-05] MEDS: QUEtiapine 100 MG Tab PO SCH (07:58)
[2017-09-05] MEDS: Formoterol/Mometasone 200-5 MCG 8.8 GM Inhaler IH SCH (07:58)
[2017-09-05] MEDS ORDERED: Lactulose Soln 10 GM/15 ML 30 ML UD Cup PO SCH (09:30)
[2017-09-05] MEDS ORDERED: Iopamidol 612 MG/ML 100 ML Bottle IVPUSH ONE (13:24)
[2017-09-05] MEDS: cefTRIAXone 1 GM Vial IVPUSH SCH (13:30)
[2017-09-05] MEDS: Azithromycin 250 MG Tab PO SCH ×3 (13:30→22:33)
--- NOTE | 2017-09-05 13:59 | PN ---
Progress Note for SILVIANO RODRIGUEZ Date: 09/05/2017 Room #: VM.217 SUBJECTIVE: This is hospital day #2, for a 57-year-old admitted with respiratory failure, cough, and fever. She is short of breath. She has been on BiPAP since yesterday. She has been weaned off for short periods of time to eat and in fact was off a little bit longer this morning. Saturations were about upper 80s on 5 L at that time. She started coughing more. She is coughing up green sputum, but her chest x-ray was normal. She quit smoking just recently. She does have a history of liver disease and cirrhosis. She denies any alcohol use, states she quit several years ago. She has had some mild encephalopathy, but currently is answering questions appropriately and mentating okay. Her last ABG was done yesterday. Her CO2 was 51, O2 was 78. This was on the 45% BiPAP. She has low platelets, but has not had any bleeding problems. She has been on Lovenox since her admission. She is denying any chest pain. She otherwise does state she has other chronic pain and has received some IV Dilaudid. She has not had a bowel movement yet. She denies any history of GI bleeds or hepatic encephalopathy, which she is aware of, but she is taking Aldactone and Lasix. She has been on IV fluids. She is also on Seroquel. She normally takes at night as it makes her too sleepy in the morning. She has been getting q.2 hours p.r.n. nebs and scheduled nebs every 4 times a day. She has been on Solu-Medrol 60 q.8 hours. She has been now afebrile. On admission, she did have tachycardia, heart rates up to 136. OBJECTIVE: Vital Signs: Otherwise, on exam her temperature is 98.5, pulse 87, blood pressure 94/55, respiratory rate 16, O2 of 99% on the 45% FiO2. General: She is in no acute distress. She is resting comfortably on BiPAP. She is not tachypneic. She is not using accessory muscles. Lungs: Lung sounds do appear decreased overall and sound tight. There is no wheezing currently. No crackles. Abdomen: Distended with ascites, nontender. Extremities: Warm and dry. There is no edema. Mental Status: She is alert and orientated x3. LAB WORK: Reviewed, does show her white count of 3.8, hemoglobin 9.7, platelets 66, yesterday her platelets were 116. Her white count was elevated at 16.8 initially, hemoglobin was 12.0 yesterday, has dropped today. Otherwise, again it should be noted she has not had a bowel movement yet. There have been no black stools. Her sodium 137, potassium 3.9, chloride 101, bicarbonate 32, BUN 25, creatinine 0.7, glucose 210. Lactic acid 1, which was elevated yesterday. Bilirubin 1.2, AST 138, ALT 97. CRP 15.8, albumin 2. ASSESSMENT AND PLAN: 1. Acute hypoxic respiratory failure secondary to chronic obstructive pulmonary disease exacerbation. They did call this pneumonia and they did start her on some IV Rocephin and oral Zithromax. However, there was no hero infiltrate on the chest x-ray, could have been she was dehydrated, but that was also repeated. At this point, I am going to pursue a chest CT for PE protocol because after I rounded on her, she got off BiPAP, used the bathroom. She was on 4 L of oxygen or 5 and dropped suddenly down to 60%, was quite tachycardic, did get back in bed and her oxygen saturations recovered to 90% with the BiPAP, but certainly PE needs to be ruled out. Otherwise, chronic obstructive pulmonary disease exacerbation. She will continue IV Solu-Medrol and nebulizers for now. I will continue antibiotics. 2. History of smoking. She just recently quit. We will have RT follow with her. 3. Chronic decompensated liver disease and cirrhosis, currently stable. We will continue Lasix and Aldactone. She is reported to have some mild encephalopathy. I will go ahead and get some lactulose started. She actually had a bowel movement before even receiving her first dose, so we will do it just once daily. 4. Hyperglycemia with a new diagnosis of diabetes. Blood sugars are high, likely due to acute illness and steroids. We will continue to monitor. We will start an insulin if they stay over about 250. 5. Urinary retention. Catheter was placed. She is having good urine output. We will keep that in for another 24 hours for strict ins and outs. PLAN: At this point, the patient will continue acute cares. We will do a CT PE protocol. We will continue antibiotics, steroids, nebulizers, and continue to try to wean BiPAP. We will adjust medications and treatment as needed. She previously took metformin, but that is on hold given her acute illness. We will start insulin if needed. Anticipate at least another night or 2 of acute cares. Addendum that CT was negative for PE and pneumonia but bronchiectasis and emphysema changes were noted. MKA: 09/05/2017 13:16:47 MODL: 09/05/2017 13:50:25 /[id number] MTDD
[2017-09-05] MEDS ORDERED: QUEtiapine 100 MG Tab PO SCH (20:00)
[2017-09-05] MEDS: Citalopram 20 MG Tab PO SCH (22:34)
[2017-09-05] MEDS: Tiotropium Inhaler 18 MCG Inhalation Powder Cap Kit of 5 INH SCH (22:43)
[2017-09-06] MEDS: Albuterol/Ipratropium 3.0-0.5 MG/3 ML Neb Soln NEB SCH ×5 (01:09→18:17)
[2017-09-06] MEDS: methylPREDNISolone Sodium Succinate 125 MG/2 ML SDV IVPUSH SCH ×3 (01:09→17:08)
[2017-09-06] MEDS: Sodium Chloride 0.9% 10 ML Syringe FLUSH PRN (01:10)
[2017-09-06] MEDS: Sucralfate 1 GM Tab PO SCH ×3 (06:25→17:09)
[2017-09-06] MEDS: Pantoprazole 40 MG Tab.CR PO SCH (06:25)
[2017-09-06 08:12] LABS: CHLORIDE,CL 102 mmol/L (98-107); SODIUM,NA 140 mmol/L (136-145)
[2017-09-06] MEDS: Arformoterol 15 MCG/2 ML Neb Soln NEB SCH ×2 (09:11→20:37)
[2017-09-06] MEDS: Insulin Detemir 100 Units/ML 3 ML Pen SUBCUT SCH (09:12)
--- NOTE | 2017-09-06 09:37 | PN ---
Progress Note for SILVIANO RODRIGUEZ Date: 09/06/2017 Room #: VM.217 SUBJECTIVE: Hospital day #3, on a 57-year-old seen for COPD exacerbation still requiring BiPAP. When she comes off it, she gets quite anxious and saturations drop into the 70% range. Yesterday, we did do a CT that was negative for PE. She did not have any pneumonias, but she did have bronchiectasis and emphysema changes. She has severe COPD with an FEV1 less than 1 L even in 2014. She has been afebrile. She has been eating and drinking, but fluid balance is negative in the last 24 hours, before that it was positive. She is slightly somnolent this morning but otherwise has been up, alert, and not confused. She is on lactulose now. It does not appear she was taking at home. She did have a bowel movement yesterday. OBJECTIVE: Vital Signs: Her temperature is 98.6, pulse 84, blood pressure 94/56, respiratory rate 19, and O2 of 93% on 35% FiO2, which was weaned down overnight. LABORATORY DATA: White count 5.5, hemoglobin actually up to 11.3 today, platelets 67. Sodium 140, potassium 3.8, chloride 102, bicarbonate 37, BUN 23, creatinine 0.7, glucose 246, calcium 9.5, AST improved down to 111, ALT down and are stable at 99, albumin 2.3. ASSESSMENT AND PLAN: 1. Acute hypoxic respiratory failure secondary to chronic obstructive pulmonary disease exacerbation. She is still requiring BiPAP. We will repeat ABGs today. We will continue the IV Rocephin and oral Zithromax. We will continue IV steroids and DuoNeb. 2. History of smoking, recently quit. 3. Chronic decompensated liver disease with cirrhosis with known history of hepatic encephalopathy. We will continue her on lactulose. We will continue to monitor her condition closely. We have stopped IV Dilaudid. We will try to minimize other narcotics, but she is on them about twice daily at home with the oxycodone. 4. Diabetes with hyperglycemia due to steroids. We will start her on Lantus 60 units daily. We will continue q.i.d. checks. 5. Urinary retention. Catheter was placed 2 days ago. We have monitored strict ins and outs. We will go ahead and remove that today and bladder scan could be done to ensure she is voiding appropriately. However, she does have quite a bit of ascites, so we will just monitor her for voiding. 6. Thrombocytopenia, due to liver disease. Platelets are stable today at 67. Lovenox was discontinued after she had a drop in hemoglobin, but that has stabilized. We will continue SCDs, although she does refuse them at times. 7. Chronic anemia, likely due to chronic liver disease. Actually, her INR was just 1.1. PLAN: At this point, the patient will continue acute cares. We will continue BiPAP and continue weaning. We will repeat an ABG this morning. We will keep other medications and treatments the same except I will add nebulized long- acting bronchodilator Brovana as well. Spiriva has been discontinued as she is on frequent DuoNeb in the hospital. MKA: 09/06/2017 08:58:17 MODL: 09/06/2017 09:32:37 /[id number]
[2017-09-06 09:40] LABS: BASE EXCESS VENOUS 13 mmol/L ((-2)-3); BICARBONATE,VENOUS 36 mmol/L (23-28); O2 SATURATION VENOUS 88 %; PCO2 VENOUS 51 mmHG (41-51); PH,VENOUS 7.47 (7.31-7.41); PO2 VENOUS 52 mmHG
[2017-09-06] MEDS: Lactulose Soln 10 GM/15 ML 30 ML UD Cup PO SCH (10:49)
[2017-09-06] MEDS: cefTRIAXone 1 GM Vial IVPUSH SCH (12:01)
[2017-09-06] MEDS: Furosemide 40 MG Tab PO SCH (13:01)
[2017-09-06] MEDS: Spironolactone 25 MG Tab PO SCH (13:01)
[2017-09-06] MEDS: ALPRAZolam 0.25 MG Tab PO PRN ×2 (13:14→20:37)
[2017-09-06] MEDS: Azithromycin 250 MG Tab PO SCH (20:35)
[2017-09-06] MEDS: Citalopram 20 MG Tab PO SCH (20:36)
[2017-09-06] MEDS: QUEtiapine 100 MG Tab PO SCH (20:37)
[2017-09-07] MEDS: methylPREDNISolone Sodium Succinate 125 MG/2 ML SDV IVPUSH SCH ×3 (01:06→08:23)
[2017-09-07] MEDS: Albuterol/Ipratropium 3.0-0.5 MG/3 ML Neb Soln NEB SCH ×2 (01:06→06:59)
[2017-09-07] MEDS: Sucralfate 1 GM Tab PO SCH ×3 (06:41→16:15)
[2017-09-07] MEDS: Pantoprazole 40 MG Tab.CR PO SCH (06:41)
[2017-09-07] MEDS: Arformoterol 15 MCG/2 ML Neb Soln NEB SCH ×2 (06:59→19:44)
[2017-09-07] MEDS: Furosemide 40 MG Tab PO SCH (07:18)
[2017-09-07] MEDS: Spironolactone 25 MG Tab PO SCH (07:18)
[2017-09-07] MEDS: Lactulose Soln 10 GM/15 ML 30 ML UD Cup PO SCH (07:18)
[2017-09-07] MEDS: Insulin Detemir 100 Units/ML 3 ML Pen SUBCUT SCH (07:19)
[2017-09-07] MEDS: ALPRAZolam 0.25 MG Tab PO PRN ×2 (07:24→19:45)
[2017-09-07] MEDS: busPIRone 5 MG Tab PO SCH ×2 (10:04→19:45)
[2017-09-07] MEDS ORDERED: Insulin Detemir 100 Units/ML 3 ML Pen SUBCUT ONE (10:15)
--- NOTE | 2017-09-07 11:44 | PN ---
Progress Note for SILVIANO RODRIGUEZ Date: 09/07/2017 Room #: VM.217 SUBJECTIVE: This is hospital day #4 on a 57-year-old with severe COPD, admitted with acute hypoxic respiratory failure, requiring BiPAP. The patient has now went outside the 96-hour window for [facility]. However, she has improved to the point where we weaned her off BiPAP since yesterday. She is saturating well on 4 L. She is up. She is alert. She is talking. She is denying any pain. She has not used an oxycodone for several days, but she is quite anxious. Some thought is that the IV steroids and nebulizers are causing this. She has actually been not wanting to do the scheduled nebulizers. She did tell me she had nebulizers at home. She, otherwise, is still coughing. She has been afebrile. Chest x-ray was not showing any infiltrate. She has been on IV Rocephin and oral Zithromax. OBJECTIVE: Vital Signs: Temperature is 97.6, pulse at 97, blood pressure 150/89, respiratory rate 21, and O2 at 98% on 4 L. General: She is in no acute distress. Heart: Regular rate and rhythm. S1 and S2 without murmur. Respiratory: Lung sounds are decreased, but clear. No crackles or wheezes. Abdomen: Mildly distended with ascites, but nontender. Extremities: Warm and dry. She has 2+ edema over her feet. Trace leg edema. No calf tenderness. Hospital course: Her Lovenox had been discontinued a few days ago due to drop in hemoglobin as well as low platelets which were around 67,000. Otherwise, Heard catheter was removed yesterday without problems. She is voiding okay. Laboratory work was reviewed. Blood sugars are running quite high up to 399. This should improve now with decreasing her steroids. She was started on insulin Levemir 6 units daily. We will increase this to 12. ABG done yesterday were venous but CO2 was not significantly elevated to explain her somnolence she is improve today. ASSESSMENT AND PLAN: 1. Acute hypoxic respiratory failure secondary to chronic obstructive pulmonary disease exacerbation with known underlying severe chronic obstructive pulmonary disease. We will decrease IV steroids to 40 twice daily. We will taper down on oxygen. In fact, I turned her down to 3 L and she is still saturating in the high 90s. We will continue continuous pulse oximetry. We will change her DuoNeb nebulizers to p.r.n. We will stop IV Rocephin, and she will complete her oral Zithromax today. 2. History of smoking, recently quit. 3. Chronic decompensated liver disease with cirrhosis with ascites and known history of hepatic encephalopathy. She is on lactulose. She is mentating okay today. She is not receiving regular narcotics. 4. Anxiety. She is on Celexa. She has been getting doses of Xanax as she gets quite shaky. I think that this will improve once the nebulizers and steroids have been decreased and titrated off, but at this point, I am going to institute some BuSpar 5 mg twice daily. 5. Diabetes with hyperglycemia due to steroids. I am going to increase Levemir to 12 units as discussed above. 6. Urinary retention, resolved. Heard has been removed. 7. Severe malnutrition due to liver disease. 8. Thrombocytopenia due to liver disease. We will repeat a CBC tomorrow. 9. Chronic anemia. Her hemoglobin yesterday had improved. It was stable. 10.Deep venous thrombosis prophylaxis. SCDs are ordered. She is not keeping them on. She is agreeable to do CAROLE stockings. 11. Metabolic alkalosis PLAN: At this point, the patient will continue acute cares. We will wean oxygen. We will stop IV antibiotics. We will decrease IV steroids. We will change nebulizers to p.r.n. She is quite weak and deconditioned, and we will get her up and work with therapies tomorrow. Anticipate that she may qualify for a swing bed stay. Discharge tentatively could be tomorrow over to swing bed or even home if she makes a good recovery. ASA: 09/07/2017 09:57:03 MODL: 09/07/2017 11:40:01 /[id number]
[2017-09-07] MEDS: Albuterol/Ipratropium 3.0-0.5 MG/3 ML Neb Soln NEB PRN ×2 (13:54→19:44)
[2017-09-07] MEDS: methylPREDNISolone Sodium Succinate 40 MG/1 ML SDV IVPUSH SCH (19:44)
[2017-09-07] MEDS: Citalopram 20 MG Tab PO SCH (19:45)
[2017-09-07] MEDS: QUEtiapine 100 MG Tab PO SCH (19:45)
[2017-09-07] MEDS: Azithromycin 250 MG Tab PO SCH (19:45)
[2017-09-07] MEDS: Sodium Chloride 0.9% 10 ML Syringe FLUSH PRN (19:50)
[2017-09-08] MEDS: Pantoprazole 40 MG Tab.CR PO SCH (06:57)
[2017-09-08] MEDS: Sucralfate 1 GM Tab PO SCH (06:57)
[2017-09-08] MEDS: Albuterol/Ipratropium 3.0-0.5 MG/3 ML Neb Soln NEB PRN (07:03)
[2017-09-08] MEDS: Arformoterol 15 MCG/2 ML Neb Soln NEB SCH (07:04)
[2017-09-08 07:28] LABS: CHLORIDE,CL 102 mmol/L (98-107); SODIUM,NA 142 mmol/L (136-145)
[2017-09-08] MEDS ORDERED: Insulin Detemir 100 Units/ML 3 ML Pen SUBCUT SCH (08:00)
[2017-09-08] MEDS: busPIRone 5 MG Tab PO SCH (08:04)
[2017-09-08] MEDS: ALPRAZolam 0.25 MG Tab PO PRN ×2 (08:04→12:46)
[2017-09-08] MEDS: Spironolactone 25 MG Tab PO SCH (08:04)
[2017-09-08] MEDS: Furosemide 40 MG Tab PO SCH (08:04)
[2017-09-08] MEDS: methylPREDNISolone Sodium Succinate 40 MG/1 ML SDV IVPUSH SCH (08:08)
[2017-09-08] MEDS: Lactulose Soln 10 GM/15 ML 30 ML UD Cup PO SCH (08:12)
[2017-09-08] MEDS ORDERED: glipiZIDE 5 MG Tab.ER PO SCH (08:30)
[2017-09-08 14:21] VITALS: BP 144/90
[2017-09-09] MEDS ORDERED: methylPREDNISolone Sodium Succinate 40 MG/1 ML SDV IVPUSH SCH (08:00)
--- NOTE | 2017-09-09 16:27 | DISCH ---
PRIMARY DISCHARGE DIAGNOSES: 1. Acute hypoxic respiratory failure secondary to severe COPD with an exacerbation and bronchiectasis noted by CT. 2. History of smoking, recently quit. 3. Chronic decompensated liver disease with cirrhosis and ascites, and known history of hepatic encephalopathy, improved during her stay. She is on lactulose. 4. Chronic anxiety, on Celexa. BuSpar was added during her stay. She did get a couple doses of Xanax, but that was discontinued. 5. Diabetes with hyperglycemia due to steroids, improved with starting Levemir and glipizide. Metformin is still on hold. 6. Urinary retention, resolved. She had a Heard for less than 48 hours. 7. Severe malnutrition due to liver disease. 8. Thrombocytopenia due to liver disease with platelets of 47, but no active bleeding. 9. Chronic anemia likely due to anemia of chronic disease. She had no GI bleeding during her stay. She denies any bleeding varices, but does have some report of duodenitis and portal hypertension, and varices without bleeding. She was not agreeable to taking her Carafate, but was on Protonix. 10.History of gallbladder calculus, asymptomatic. She had no abdominal pain. 11.Metabolic alkalosis, probably due to compensation for respiratory acidosis. Her CO2 improved with BiPAP. Her last sample was a venous blood gas. 12.DVT prophylaxis. She was given Lovenox during her stay, but this was discontinued after her platelets did drop. There was no evidence of clotting. She was to wear SCDs and support stockings. 13.Smoking. 14.History of hepatitis C. She has not been treated. 15.History of alcohol dependence in remission. 16.History of drug over dose. She is on narcotics as an outpatient about 2 oxycodone per day. She really did not exceed that during her hospital stay. REASON FOR ADMISSION: On the date of admission, this 57-year-old female presented to the ER with increasing shortness of breath over several weeks. She had been through the clinic for treatments as well by her report. She has known severe COPD with her FEV1 around 35%, even back in 2015. There was some concern she had pneumonia. She was started on Rocephin and Zithromax; however, on repeat chest x-ray, it looked clear. Due to her hypoxia with sats dropping down into 60% range while off BiPAP, we did do a CT PE protocol, which was negative, but did show some bronchiectasis. The patient was continued on IV Rocephin and Zithromax, and did complete a 5-day course. It was felt to be a very severe chronic obstructive pulmonary disease exacerbation. She had no fevers. Her oxygen saturations gradually improved. She was taken off the BiPAP on Friday, 09/06 and did well. Her last ABG at that time was a venous sample. Did show her pCO2 was 51. Her ABG was up to 7.47. Otherwise, the patient's blood sugars were quite high in the 300s. She was getting IV Solu-Medrol 3 times a day. This was tapered down to 40 mg twice daily. Her wheezing was still present, but overall her lung sounds had improved. Initially, she was quite tight and you could almost not hear any wheezing. She was coughing up green phlegm and sputum, but her blood culture showed no growth. Her influenza testing was negative. Otherwise, the patient was started on Xanax. She would get quite anxious when she was short of breath. She would get a couple doses of this a day. She was monitored closely to ensure no over-sedation. One morning, she was overly tired; therefore, we cut back on the Seroquel, which she normally gets extended release at night, and this did seem to help. We did discontinue her home inhalers due to the frequent nebs, but did institute Brovana, which she was tolerating. She did not like using the nebulizers, so we changed it to p.r.n. and she seemed to do okay without them. Otherwise, she also was not agreeable to taking Carafate; therefore, we discontinued it and continued her on Protonix. She was also on Aldactone and Lasix to help with fluid. She did have a positive fluid balance. Initially, a Heard was placed and she had good urine output. After that, the Heard was removed and she had no further problems with urinary retention. She was having bowel movements. We did give her lactulose, but it is pretty clear that she likely was not taking that at home. Because she was never overly sedated or confused under my care, I did not order any ammonia levels. DISCHARGE PLANS/INSTRUCTIONS: She is going over to swing bed for further PT and OT. It is likely she will not work with therapy, especially OT. They attempted 4 times. PT had not been in to see her when I had been there, but she is so weak and deconditioned, she is unable to go home in her current state. We will taper down to prednisone 60 mg daily for 3 more days. We will repeat lab work for her on 09/11. We will have her on a diabetic diet. We will continue the insulin and glipizide. We will continue the BuSpar for anxiety. We will keep her on SCDs for DVT prophylaxis. We will continue to monitor her clinical condition. DISCHARGE PHYSICAL EXAMINATION: Vital Signs: Do include a temperature of 98, pulse 97, blood pressure 145/89, respiratory rate 16, O2 94% on 3 L. General: She is in no acute distress. Heart: Regular rate and rhythm. S1, S2 without murmur. Lungs: Sounds are decreased with some mild expiratory wheezing. No crackles. No rhonchi. Abdomen: Mildly distended with ascites. It is nontender. Extremities: Warm and dry. She just has trace edema over her ankles. Support stockings were not currently in place. She did have some mottling noted to her thigh. Mental Status: She is alert. She is oriented x3. She does remember all her instructions we discussed yesterday. Greater than 30 minutes spent on the discharge process. It should also be noted that the patient did go over the 96-hour window, but she was gradually improving each day. She just had severe respiratory failure and required a prolonged stay and because she was improving, transfer was not initiated. She was also not wanting to go down to [place] either for further cares. MKA: 09/08/2017 16:39:50 MODL: 09/09/2017 15:07:13 /[id number]
== END 2017-09-08 15:04 | disposition swing bed (61) | DRG 190 ==
LOC: VM.ED 12:42 → VM.MS 14:04
PROVIDERS: ADMIT Family Medicine; ATTEND Family Medicine
DX: A41.9 Sepsis, unspecified organism (principal); J18.9 Pneumonia, unspecified organism; J44.9 Chronic obstructive pulmonary disease, unspecified; J96.10 Chronic respiratory failure, unspecified whether with hypoxia or hypercapnia; J44.0 Chronic obstructive pulmonary disease with (acute) lower respiratory infection; J44.1 Chronic obstructive pulmonary disease with (acute) exacerbation; F17.210 Nicotine dependence, cigarettes, uncomplicated; J96.21 Acute and chronic respiratory failure with hypoxia; E46 Unspecified protein-calorie malnutrition; K74.60 Unspecified cirrhosis of liver; E87.3 Alkalosis; K72.90 Hepatic failure, unspecified without coma; K21.9 Gastro-esophageal reflux disease without esophagitis; D69.6 Thrombocytopenia, unspecified; Z87.891 Personal history of nicotine dependence; E11.65 Type 2 diabetes mellitus with hyperglycemia; R33.9 Retention of urine, unspecified; D63.8 Anemia in other chronic diseases classified elsewhere; F41.9 Anxiety disorder, unspecified; B19.20 Unspecified viral hepatitis C without hepatic coma; Z88.8 Allergy status to other drugs, medicaments and biological substances; Z79.899 Other long term (current) drug therapy; Z79.84 Long term (current) use of oral hypoglycemic drugs; E78.00 Pure hypercholesterolemia, unspecified; R91.1 Solitary pulmonary nodule; F32.9 Major depressive disorder, single episode, unspecified
CPT/HCPCS: 36415; 36600; 51702; 71045; 71275; 80048; 80053; 82140; 82803; 82962; 83605; 83735; 83880; 84100; 84484; 85025; 85379; 85610; 86140; 87040; 87804; 93005; 94640; 94660; 94760; 96365; 96375; 97161-GP; 97165-GO; 97530-GP; 99285; A9270-GY; J0456; J0696; J1170; J1650; J1815-GY; J2920; J2930; J3475; J7050; J7120; J7620-GY; Q9967

== ENCOUNTER 2017-09-08 12:49 | Inpatient (IN) | payer MEDICAID ==
[2017-09-08] MEDS ORDERED: Hydrocortisone 2.5% Crm 30 GM Tube TOP PRN (13:01)
[2017-09-08] MEDS ORDERED: ALPRAZolam 0.25 MG Tab PO PRN (13:01)
[2017-09-08] MEDS ORDERED: Sodium Chloride 0.9% 10 ML Syringe FLUSH PRN ×2 (13:01)
[2017-09-08] MEDS ORDERED: Ondansetron 4 MG Tab.DIS PO PRN (13:01)
[2017-09-08] MEDS ORDERED: Tiotropium Inhaler 18 MCG Inhalation Powder Cap Kit of 5 INH SCH (13:15)
[2017-09-08] MEDS ORDERED: QUEtiapine 100 MG Tab PO SCH (20:00)
[2017-09-08] MEDS ORDERED: QUETIAPINE 100 MG PO ONE (20:00)
[2017-09-08] MEDS: CITALOPRAM 20 MG PO SCH (20:50)
[2017-09-08] MEDS: BUSPIRONE 5 MG PO SCH (20:50)
[2017-09-08] MEDS: Albuterol/Ipratropium 3.0-0.5 MG/3 ML Neb Soln NEB PRN (20:51)
[2017-09-08] MEDS: ALPRAZolam 0.25 MG Tab PO PRN (20:59)
[2017-09-08] MEDS: OXYCODONE 5 MG PO PRN (22:48)
[2017-09-09] MEDS: Omeprazole 20 MG Cap.CR PO SCH (06:24)
[2017-09-09] MEDS: Albuterol/Ipratropium 3.0-0.5 MG/3 ML Neb Soln NEB PRN (07:23)
[2017-09-09] MEDS: BUSPIRONE 5 MG PO SCH ×2 (08:02→20:42)
[2017-09-09] MEDS: Spironolactone 25 MG Tab PO SCH (08:02)
[2017-09-09] MEDS: FUROSEMIDE 40 MG PO SCH (08:02)
[2017-09-09] MEDS: LACTULOSE 10 GM/15 ML PO SCH (08:03)
[2017-09-09] MEDS: INSULIN DETEMIR 100 UNIT/ML SUBCUT SCH (08:03)
[2017-09-09] MEDS: predniSONE 20 MG Tab PO SCH (08:04)
[2017-09-09] MEDS: SPIRIVA INH SCH (08:06)
[2017-09-09] MEDS ORDERED: ONDANSETRON 4 MG PO PRN (09:27)
[2017-09-09] MEDS ORDERED: ALBUTEROL INH PRN (11:23)
[2017-09-09] MEDS ORDERED: SYMBICORT INH SCH (11:30)
[2017-09-09] MEDS: CITALOPRAM 20 MG PO SCH (20:42)
[2017-09-09] MEDS: QUETIAPINE 100 MG PO SCH (20:43)
[2017-09-09] MEDS: LACTULOSE PO SCH (20:46)
[2017-09-10] MEDS: Omeprazole 20 MG Cap.CR PO SCH (06:11)
[2017-09-10] MEDS: Spironolactone 25 MG Tab PO SCH (08:24)
[2017-09-10] MEDS: LACTULOSE 10 GM/15 ML PO SCH ×2 (08:24→08:39)
[2017-09-10] MEDS: BUSPIRONE 5 MG PO SCH ×2 (08:25→20:08)
[2017-09-10] MEDS: FUROSEMIDE 40 MG PO SCH (08:25)
[2017-09-10] MEDS: LACTULOSE PO SCH ×3 (08:26→20:08)
[2017-09-10] MEDS: SPIRIVA INH SCH (08:26)
[2017-09-10] MEDS: predniSONE 20 MG Tab PO SCH (08:26)
[2017-09-10] MEDS: ALPRAZolam 0.25 MG Tab PO PRN ×4 (08:50→22:02)
[2017-09-10] MEDS: INSULIN DETEMIR 100 UNIT/ML SUBCUT SCH (09:13)
[2017-09-10] MEDS: Nicotine 14 MG/24 Hr Patch TRDERM SCH (11:51)
[2017-09-10] MEDS: Insulin Detemir 100 Units/ML 3 ML Pen SUBCUT SCH (11:52)
[2017-09-10] MEDS: OXYCODONE 5 MG PO PRN ×3 (12:47→22:02)
[2017-09-10] MEDS ORDERED: Insulin Aspart 100 Units/ML 3 ML Pen SUBCUT ONE ×2 (17:08→20:00)
[2017-09-10] MEDS: CITALOPRAM 20 MG PO SCH (20:08)
[2017-09-10] MEDS: QUETIAPINE 100 MG PO SCH (20:08)
[2017-09-11] MEDS: Omeprazole 20 MG Cap.CR PO SCH (06:13)
[2017-09-11 07:04] LABS: CHLORIDE,CL 97 mmol/L (98-107); SODIUM,NA 140 mmol/L (136-145)
[2017-09-11] MEDS: Spironolactone 25 MG Tab PO SCH (07:48)
[2017-09-11] MEDS: LACTULOSE PO SCH ×3 (07:49→20:52)
[2017-09-11] MEDS: BUSPIRONE 5 MG PO SCH ×2 (07:49→20:49)
[2017-09-11] MEDS: Nicotine 14 MG/24 Hr Patch TRDERM SCH (07:50)
[2017-09-11] MEDS: FUROSEMIDE 40 MG PO SCH (07:50)
[2017-09-11] MEDS: predniSONE 20 MG Tab PO SCH (07:51)
[2017-09-11] MEDS: Insulin Detemir 100 Units/ML 3 ML Pen SUBCUT SCH (07:51)
[2017-09-11] MEDS: SPIRIVA INH SCH (07:52)
[2017-09-11] MEDS ORDERED: Acetaminophen 325 MG Tab PO PRN (08:09)
[2017-09-11] MEDS: OXYCODONE 5 MG PO PRN (13:40)
[2017-09-11] MEDS: ALPRAZolam 0.25 MG Tab PO PRN ×2 (13:41→20:49)
[2017-09-11] MEDS: CITALOPRAM 20 MG PO SCH (20:49)
[2017-09-11] MEDS: QUETIAPINE 100 MG PO SCH (20:49)
[2017-09-12] MEDS: Omeprazole 20 MG Cap.CR PO SCH (06:39)
[2017-09-12] MEDS: OXYCODONE 5 MG PO PRN ×2 (08:14→20:01)
[2017-09-12] MEDS: SPIRIVA INH SCH (08:16)
[2017-09-12] MEDS: Insulin Detemir 100 Units/ML 3 ML Pen SUBCUT SCH (08:17)
[2017-09-12] MEDS: FUROSEMIDE 40 MG PO SCH (08:18)
[2017-09-12] MEDS: BUSPIRONE 5 MG PO SCH ×2 (08:19→19:48)
[2017-09-12] MEDS: Nicotine 14 MG/24 Hr Patch TRDERM SCH (08:24)
[2017-09-12] MEDS: ALBUTEROL NEB PRN ×2 (11:20→19:53)
[2017-09-12] MEDS: IPRATROPIUM NEB PRN ×2 (11:20→19:53)
[2017-09-12] MEDS: LACTULOSE PO SCH ×2 (13:32→19:54)
[2017-09-12] MEDS: Spironolactone 25 MG Tab PO SCH (13:32)
[2017-09-12] MEDS: ALPRAZolam 0.25 MG Tab PO PRN (14:26)
[2017-09-12] MEDS: QUETIAPINE 100 MG PO SCH (19:52)
[2017-09-12] MEDS: CITALOPRAM 20 MG PO SCH (19:52)
[2017-09-13] MEDS: Omeprazole 20 MG Cap.CR PO SCH (06:06)
[2017-09-13] MEDS: ALBUTEROL NEB PRN (07:05)
[2017-09-13] MEDS: IPRATROPIUM NEB PRN (07:05)
[2017-09-13] MEDS: Spironolactone 25 MG Tab PO SCH (07:37)
[2017-09-13] MEDS: FUROSEMIDE 40 MG PO SCH (07:38)
[2017-09-13] MEDS: Nicotine 14 MG/24 Hr Patch TRDERM SCH (07:38)
[2017-09-13] MEDS: BUSPIRONE 5 MG PO SCH ×2 (07:38→20:39)
[2017-09-13] MEDS: LACTULOSE PO SCH ×2 (07:38→20:40)
[2017-09-13] MEDS: SPIRIVA INH SCH (07:39)
[2017-09-13] MEDS: Insulin Detemir 100 Units/ML 3 ML Pen SUBCUT SCH (07:39)
[2017-09-13] MEDS: OXYCODONE 5 MG PO PRN (20:36)
[2017-09-13] MEDS: QUETIAPINE 100 MG PO SCH (20:39)
[2017-09-13] MEDS: CITALOPRAM 20 MG PO SCH (20:40)
[2017-09-13] MEDS: ALPRAZolam 0.25 MG Tab PO PRN (20:42)
[2017-09-14] MEDS: Omeprazole 20 MG Cap.CR PO SCH (06:54)
[2017-09-14] MEDS: ALBUTEROL NEB PRN (06:56)
[2017-09-14] MEDS: IPRATROPIUM NEB PRN (06:56)
[2017-09-14] MEDS: Spironolactone 25 MG Tab PO SCH (08:59)
[2017-09-14] MEDS: BUSPIRONE 5 MG PO SCH ×2 (08:59→20:39)
[2017-09-14] MEDS: Nicotine 14 MG/24 Hr Patch TRDERM SCH (09:00)
[2017-09-14] MEDS: LACTULOSE PO SCH (09:00)
[2017-09-14] MEDS: SPIRIVA INH SCH (09:00)
[2017-09-14] MEDS: Insulin Detemir 100 Units/ML 3 ML Pen SUBCUT SCH (09:00)
[2017-09-14] MEDS: FUROSEMIDE 40 MG PO SCH (09:00)
[2017-09-14] MEDS: OXYCODONE 5 MG PO PRN (17:51)
[2017-09-14] MEDS: ALPRAZolam 0.25 MG Tab PO PRN (17:54)
[2017-09-14] MEDS: QUETIAPINE 100 MG PO SCH (20:40)
[2017-09-14] MEDS: CITALOPRAM 20 MG PO SCH (20:40)
[2017-09-14] MEDS: CONSTULOSE PO SCH (20:44)
[2017-09-15] MEDS: Omeprazole 20 MG Cap.CR PO SCH (06:38)
[2017-09-15] MEDS: ALBUTEROL NEB PRN (07:26)
[2017-09-15] MEDS: IPRATROPIUM NEB PRN (07:26)
[2017-09-15] MEDS: BUSPIRONE 5 MG PO SCH ×2 (08:35→20:00)
[2017-09-15] MEDS: CONSTULOSE PO SCH ×3 (08:36→20:01)
[2017-09-15] MEDS: FUROSEMIDE 40 MG PO SCH (08:36)
[2017-09-15] MEDS: Spironolactone 25 MG Tab PO SCH (08:36)
[2017-09-15] MEDS: Nicotine 14 MG/24 Hr Patch TRDERM SCH (08:36)
[2017-09-15] MEDS: Insulin Detemir 100 Units/ML 3 ML Pen SUBCUT SCH (08:37)
[2017-09-15] MEDS: SPIRIVA INH SCH (08:38)
[2017-09-15] MEDS: OXYCODONE 5 MG PO PRN (08:39)
[2017-09-15] MEDS: CITALOPRAM 20 MG PO SCH (20:00)
[2017-09-15] MEDS: QUETIAPINE 100 MG PO SCH (20:00)
[2017-09-16] MEDS: Omeprazole 20 MG Cap.CR PO SCH (06:17)
[2017-09-16] MEDS: ALBUTEROL NEB PRN (07:23)
[2017-09-16] MEDS: IPRATROPIUM NEB PRN (07:23)
[2017-09-16] MEDS: Nicotine 14 MG/24 Hr Patch TRDERM SCH (07:44)
[2017-09-16] MEDS: BUSPIRONE 5 MG PO SCH ×2 (07:45→20:07)
[2017-09-16] MEDS: Spironolactone 25 MG Tab PO SCH (07:46)
[2017-09-16] MEDS: FUROSEMIDE 40 MG PO SCH (07:46)
[2017-09-16] MEDS: OXYCODONE 5 MG PO PRN ×2 (07:47→20:08)
[2017-09-16] MEDS: Insulin Detemir 100 Units/ML 3 ML Pen SUBCUT SCH (07:49)
[2017-09-16] MEDS: SPIRIVA INH SCH (07:49)
[2017-09-16] MEDS: CONSTULOSE PO SCH ×3 (07:51→20:07)
[2017-09-16] MEDS: QUETIAPINE 100 MG PO SCH (20:07)
[2017-09-16] MEDS: CITALOPRAM 20 MG PO SCH (20:07)
[2017-09-17] MEDS: Omeprazole 20 MG Cap.CR PO SCH (06:17)
[2017-09-17] MEDS: ALBUTEROL NEB PRN ×2 (07:12→18:20)
[2017-09-17] MEDS: IPRATROPIUM NEB PRN ×2 (07:12→18:20)
[2017-09-17] MEDS: Nicotine 14 MG/24 Hr Patch TRDERM SCH (08:34)
[2017-09-17] MEDS: CONSTULOSE PO SCH ×3 (08:35→19:52)
[2017-09-17] MEDS: SPIRIVA INH SCH (08:35)
[2017-09-17] MEDS: Spironolactone 25 MG Tab PO SCH (08:36)
[2017-09-17] MEDS: FUROSEMIDE 40 MG PO SCH (08:36)
[2017-09-17] MEDS: BUSPIRONE 5 MG PO SCH ×2 (08:36→19:52)
[2017-09-17] MEDS: Insulin Detemir 100 Units/ML 3 ML Pen SUBCUT SCH (08:37)
[2017-09-17] MEDS ORDERED: BISACODYL ENEMA 10 MG/30 ML RECTAL ONE (16:00)
[2017-09-17] MEDS: QUETIAPINE 100 MG PO SCH (19:52)
[2017-09-17] MEDS: CITALOPRAM 20 MG PO SCH (19:52)
[2017-09-17] MEDS: OXYCODONE 5 MG PO PRN (19:53)
[2017-09-17] MEDS: ALPRAZolam 0.25 MG Tab PO PRN (20:09)
[2017-09-18] MEDS: Omeprazole 20 MG Cap.CR PO SCH (06:02)
[2017-09-18] MEDS: ALBUTEROL NEB PRN (07:39)
[2017-09-18] MEDS: IPRATROPIUM NEB PRN (07:39)
[2017-09-18] MEDS: BUSPIRONE 5 MG PO SCH ×2 (07:46→20:13)
[2017-09-18] MEDS: Spironolactone 25 MG Tab PO SCH (07:47)
[2017-09-18] MEDS: FUROSEMIDE 40 MG PO SCH (07:48)
[2017-09-18] MEDS: Nicotine 14 MG/24 Hr Patch TRDERM SCH (07:48)
[2017-09-18] MEDS: SPIRIVA INH SCH (07:52)
[2017-09-18] MEDS: CONSTULOSE PO SCH ×3 (07:54→20:13)
[2017-09-18] MEDS: Insulin Detemir 100 Units/ML 3 ML Pen SUBCUT SCH (07:56)
--- NOTE | 2017-09-18 14:14 | PCM.DCSUM1 ---
Discharge Summary - Hospital Course Free Text/Narrative:: Patient was admitted couple weeks ago for exacerbation of COPD. No hero infiltrate by x-ray or CT but likely did have infectious component. Gradual improvement on antibiotics & steroids. On full inhaler treatments. She required BiPAP for a number of days as not saturated >90% on nasal cannula. She 's currently running low to mid 90s on 2 L NC. She'll be going home on 2 L continuous oxygen. She generally feels she is near her baseline. Severe end- stage COPD with last PFTs couple years ago showing FEV1 less than 1 L/35%. She had some been smoking lightly she feels should be able to totally quit. She also has end-stage liver disease with ascites and some hepatic encephalopathy. She has new diagnosis of diabetes. She was started on glipizide and low-dose Levemir. I don't think she's can tolerate insulin very well as she had a low blood sugar here, she can't recognize these herself, she generally will be noncompliant with checking blood sugars at home. The bathing aide will be going into her home. Home health will also be helping her set things up. Her EREN andCchild Lu scores would indicate poor medium-term prognosis; may need to consider hospice at some point in future. 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 She'll see me in clinic again in about two weeks for recheck. EREN Index for COPD Survival from [facility] on 09/18/2017 RESULT SUMMARY: 8 points 18 % Estimated 4-year survival INPUTS: FEV (% of predicted) > 3 = 35% <calculator id='[id number]'>6 Minute Walk Distance</calculator> > 3 = 149 m (163 yds) <calculator id='[id number]'><abbr title='Modified Medical [employer]'>mMRC</abbr > Dyspnea Scale</calculator> > 1 = Walks slower than people of same age because of dyspnea or stops for breath when walking at own pace <calculator id='[id number]'><abbr title='Body Mass Index'>BMI</abbr></calculator> (kg/m ) > 1 = 21 Child-Lu Score for Cirrhosis Mortality from [email or web address] on 09/18/2017 RESULT SUMMARY: 8 points Child Class B Indication for transplant evaluation Abdominal surgery tobias-operative mortality: 30% INPUTS: Bilirubin (Total) > 1 = <2 mg/dL (<34.2 mol/L) Albumin > 2 = 2.8-3.5 g/dL (28-35 g/L) INR > 1 = <1.7 Ascites > 2 = Slight Encephalopathy > 2 = Grade 1-2 - Discharge Data Discharge Date: 09/18/17 Discharge Disposition: Home, Self-Care 01 Condition: Fair - Patient Summary/Data Consults: Consultations 09/08/17 13:01 Consult to Marine Steward [CONS] Routine OT Evaluation and Treatment [CONS] Routine PT Evaluation and Treatment [CONS] Routine 09/11/17 11:16 OT Evaluation and Treatment [CONS] Routine - Discharge Plan Home Medications: Home Meds Tiotropium [Spiriva HandiHaler] 1 cap INH DAILY 04/24/14 [History] Albuterol [Proair HFA] 2 puff INH Q4HR PRN 09/03/17 [History] Budesonide/Formoterol Fumarate [Symbicort 160-4.5 Mcg Inhaler] 2 puff IH BID [History] Citalopram Hydrobromide [Celexa] 20 mg PO BEDTIME 09/03/17 [History] Furosemide 40 mg PO DAILY 09/03/17 [History] Hydrocortisone [Hydrocortisone 2.5% Crm] 1 gm TOP BID PRN 09/03/17 [History] Pantoprazole [Pantoprazole Sodium] 40 mg PO DAILY 09/03/17 [History] Spironolactone [Aldactone] 100 mg PO DAILY 09/03/17 [History] oxyCODONE 5 mg PO BID PRN 09/03/17 [History] Citalopram [Citalopram HBr] 20 mg PO DAILY 09/09/17 [History] Lactulose [Cephulac] 20 gm PO DAILY 09/09/17 [History] QUEtiapine [SEROquel] 200 mg PO BEDTIME 09/09/17 [History] busPIRone [Buspar] 5 mg PO BID 09/09/17 [History] glipiZIDE [Glucotrol] 5 mg PO WITHBREAKFAST 09/09/17 [History] Acetaminophen [Tylenol] 325 mg PO Q6H PRN tablet 09/18/17 [Rx] Constulose 10 gm PO TID 09/18/17 [Rx] Furosemide [Lasix] 40 mg PO DAILY tablet 09/18/17 [Rx] Proair. 0 puff INH Q4H PRN 09/18/17 [Rx] Seroquel Xr 0 mg PO BEDTIME 09/18/17 [Rx] Spiriva. 0 dose INH DAILY 09/18/17 [Rx] Symbicort 160 0 puff INH BID 09/18/17 [Rx] glipiZIDE [Glucotrol XL] 5 mg PO WITHBREAKFAST tab.er 09/18/17 [Rx] oxyCODONE 5 mg PO BID PRN tablet 09/18/17 [Rx] - Patient Data Vitals - Most Recent: Last Vital Signs Temp 36.8 C 09/18/17 05:57 Pulse 104 H 09/18/17 05:57 Resp 18 09/18/17 05:57 BP 109/59 L 09/18/17 05:57 Pulse Ox 98 09/18/17 07:40 Weight - Most Recent: 62.142 kg I&O - Last 24 hours: Intake & Output 09/17/17 09/18/17 09/18/17 22:59 06:59 14:59 Intake Total 960 120 Balance 960 120 Lab Results - Last 24 hrs: Laboratory Results - last 24 hr 09/17/17 09/17/17 09/18/17 Range/Units 16:47 19:51 04:15 POC Glucose 180 H 160 H 150 H (74-106) mg/dL 09/18/17 09/18/17 Range/Units 05:59 11:29 POC Glucose 175 H 165 H (74-106) mg/dL Med Orders - Current: Current Medications Acetaminophen (Tylenol) 325 mg PO Q6H PRN PRN Reason: Pain Last Admin: 09/11/17 20:49 Dose: 325 mg Alprazolam (Xanax) 0.25 mg PO Q4H PRN PRN Reason: Anxiety Last Admin: 09/17/17 20:09 Dose: 0.25 mg Buspirone HCl (Buspar) 5 mg PO BID [facility] Last Admin: 09/18/17 07:46 Dose: 5 mg Citalopram Hydrobromide (Celexa) 20 mg PO BEDTIME [facility] Last Admin: 09/17/17 19:52 Dose: 20 mg Furosemide (Lasix) 40 mg PO DAILY [facility] Last Admin: 09/18/17 07:48 Dose: 40 mg Glipizide (Glucotrol Xl) 5 mg PO WITHBREAKFAST [facility] Last Admin: 09/18/17 07:47 Dose: 5 mg Insulin Detemir (Levemir) 8 unit SUBCUT DAILY [facility] Last Admin: 09/18/17 07:56 Dose: Not Given Nicotine (Habitrol) 14 mg TRDERM DAILY [facility] Last Admin: 09/18/17 07:48 Dose: 14 mg Spiriva Inhaler (Own (Supply)) 0 dose INH DAILY [facility] Last Admin: 09/18/17 07:52 Dose: 18 dose Quetiapine (Seroquel () 100mg (Own Supply)) 0 mg PO BEDTIME [facility] Last Admin: 09/17/17 19:52 Dose: 100 mg Ondansetron (Zofran) (4mg (Own Supply)) 0 mg PO Q6H PRN PRN Reason: Nausea Last Admin: 09/16/17 07:48 Dose: 4 mg Proair (Albuterol) (Inhaler Own Supply) 0 puff INH Q4H PRN PRN Reason: sob Dulera 200/5mcg (Inhaler) 0 puff INH BID [facility] Last Admin: 09/18/17 07:53 Dose: 2 puff Albuterol/Ipratropium 2.5/0. 5mg (Duoneb) Own Supply 0 ml NEB Q6H PRN PRN Reason: cough/sob Last Admin: 09/18/17 07:39 Dose: 2.5 ml Non-Formulary Medication (Constulose) 10 gm PO TID [facility] Last Admin: 09/18/17 12:27 Dose: 10 gm Omeprazole (Omeprazole) 20 mg PO DAILY@0700 [facility] Last Admin: 09/18/17 06:02 Dose: 20 mg Oxycodone HCl (Oxycodone) 5 mg PO BID PRN PRN Reason: pain Last Admin: 09/17/17 19:53 Dose: 5 mg Spironolactone (Aldactone) 100 mg PO DAILY [facility] Last Admin: 09/18/17 07:47 Dose: 100 mg Discontinued Medications Albuterol/Ipratropium (Duoneb 3.0-0.5 Mg/3 Ml) 3 ml NEB Q6H PRN PRN Reason: Cough Last Admin: 09/09/17 07:23 Dose: 3 ml Bisacodyl (Bisacodyl) 30 ml RECTAL ONETIME ONE Stop: 09/17/17 16:01 Last Admin: 09/17/17 16:02 Dose: 30 ml Insulin Aspart (Novolog) 4 unit SUBCUT ONETIME ONE Stop: 09/10/17 17:09 Last Admin: 09/10/17 17:21 Dose: 4 unit Insulin Aspart (Novolog) 12 unit SUBCUT ONETIME ONE Stop: 09/10/17 20:01 Last Admin: 09/10/17 19:40 Dose: 12 units Insulin Detemir (Levemir) 12 unit SUBCUT DAILY [facility] Last Admin: 09/10/17 09:13 Dose: Not Given Lactulose (Cephulac) 20 gm PO DAILY [facility] Last Admin: 09/10/17 08:39 Dose: Not Given Symbicort 160 (Inhaler (Own Supply)) 2 puff INH BID [facility] Last Admin: 09/09/17 15:13 Dose: Not Given Constulose ( Lactulose) 10gm/15ml (Own Supply) 0 gm PO BID [facility] Last Admin: 09/14/17 09:00 Dose: 10 gm Prednisone (Prednisone) 60 mg PO WITHBREAKFAST [facility] Stop: 09/11/17 23:00 Last Admin: 09/11/17 07:51 Dose: 60 mg Quetiapine Fumarate (Seroquel) 100 mg PO ONETIME ONE Stop: 09/08/17 20:01 Last Admin: 09/08/17 20:49 Dose: 100 mg *Q Meaningful Use (DIS) - VTE *Q VTE Criteria *Q: - Stroke *Q Stroke Criteria *Q: - AMI *Q AMI Criteria *Q:
[2017-09-18] MEDS: CITALOPRAM 20 MG PO SCH (20:13)
[2017-09-18] MEDS: QUETIAPINE 100 MG PO SCH (20:13)
[2017-09-19 05:32] VITALS: BP 109/65
[2017-09-19] MEDS: Omeprazole 20 MG Cap.CR PO SCH (06:26)
[2017-09-19] MEDS: ALBUTEROL NEB PRN (07:28)
[2017-09-19] MEDS: IPRATROPIUM NEB PRN (07:28)
[2017-09-19] MEDS: Nicotine 14 MG/24 Hr Patch TRDERM SCH (07:51)
[2017-09-19] MEDS: FUROSEMIDE 40 MG PO SCH (07:52)
[2017-09-19] MEDS: BUSPIRONE 5 MG PO SCH (07:52)
[2017-09-19] MEDS: Spironolactone 25 MG Tab PO SCH (07:53)
[2017-09-19] MEDS: SPIRIVA INH SCH (07:53)
[2017-09-19] MEDS: CONSTULOSE PO SCH (07:54)
[2017-09-19] MEDS: OXYCODONE 5 MG PO PRN (07:55)
[2017-09-19] MEDS: Insulin Detemir 100 Units/ML 3 ML Pen SUBCUT SCH (07:57)
== END 2017-09-19 11:23 | disposition home or self-care (01) | DRG 191 ==
LOC: VM.MS 13:05
PROVIDERS: ADMIT Internal Medicine; ATTEND Family Medicine
DX: J44.1 Chronic obstructive pulmonary disease with (acute) exacerbation (principal); R18.8 Other ascites; K72.90 Hepatic failure, unspecified without coma; E11.9 Type 2 diabetes mellitus without complications; B19.20 Unspecified viral hepatitis C without hepatic coma; F41.9 Anxiety disorder, unspecified; Z79.899 Other long term (current) drug therapy; Z87.891 Personal history of nicotine dependence
CPT/HCPCS: 36415; 80048; 82962; 85025; 94640; 94760; 97110-GP; 97116-GP; A9270-GY; J1815-GY